=== PATIENT | male | born 1950 | race Caucasian/White ===

== ENCOUNTER 2017-10-17 15:05 | Inpatient (IN) | payer OTHER ==
[~2017-10-17] VITALS: Ht 175.3 cm; Wt 105.2 kg
--- NOTE | 2017-10-17 15:45 | ED GENERAL ADULT ---
History of Present Illness General Chief Complaint: Dyspnea (COPD, CHF, Other) Stated Complaint: ALAINA FOREMAN FOR SOB Source: patient Exam Limitations: no limitations Vital Signs & Intake/Output Vital Signs & Intake/Output Vital Signs Date Time Temp Pulse Resp B/P B/P Pulse O2 O2 Flow FiO2 Mean Ox Delivery Rate 10/17 1829 97.9 71 18 86 Nasal 4.5L Cannula 10/17 1701 95 Nasal 4.0L Cannula 10/17 1629 98.1 75 16 156/96 90 Nasal 4.5L Cannula 10/17 1528 97.5 90 30 164/88 84 Nasal 5.0L Cannula Allergies Coded Allergies: No Known Allergies (10/17/17) Reconcile Medications Amlodipine Besylate 2.5 MG TABLET 1 TAB PO DAILY BP (Reported) Aspirin (Ecotrin*) 81 MG TABLET.DR 1 TAB PO DAILY HEART/BLOOD (Reported) Atorvastatin Calcium 20 MG TABLET 1 TAB PO DAILY CHOLESTEROL (Reported) Budesonide/Formoterol Fumarate (Symbicort 160-4.5 Mcg Inhaler) 160 MCG-4.5 MCG/ ACTUATION HFA.AER.AD 2 PUF INH DAILY RESP. (Reported) Cholecalciferol (Vitamin D3) (Vitamin D) 1,000 UNIT TABLET 1 TAB PO DAILY SUPPLEMENT (Reported) Lorazepam 0.5 MG TABLET 1 TAB PO BID ANXIETY (Reported) Metformin HCl 500 MG TABLET 1 TAB PO DAILY DM (Reported) Oxybutynin Chloride (Oxybutynin Chloride ER) 10 MG TAB.ER.24 1 TAB PO DAILY BLADDER (Reported) Quinapril HCl 20 MG TABLET 1 TAB PO BID BP (Reported) Sertraline HCl 100 MG TABLET 1.5 TAB PO DAILY MENTAL HEALTH (Reported) Triage Note: PT SENT IN BY DR. FOREMAN FOR INCREASED SOB. PT 02 SAT 82% ON 5L VIA NC. PT REPORTS HE HAS BEEN COUGHING AND BRINGING UP YELLOW/WHITE SPUTUM OVER THE PAST COUPLE OF DAYS. PT TAKEN TO EKG ALCOVE AND THEN TO ROOM 2. Triage Nurses Notes Reviewed? yes Onset: Abrupt Duration: day(s): Timing: recent history HPI: 10/17/17 4 PM 67-year-old man presents to the emergency department complaining of difficulty breathing. According to the patient he says shortness of breath for approximately the past week. He is on 4 L nasal cannula at home. Now he presents with worsening difficulty breathing. He says he's been having trouble since he had a intestinal virus that started around Maxim[place]. He denies fever or chest pain. Past History Travel History Traveled to [place] past 21 day No Medical History Any Pertinent Medical History? see below for history Respiratory: COPD, 02 DEPENDANT Surgical History Surgical History: non-contributory Psychosocial History What is your primary language Tajik Tobacco Use: Quit >30 days ago ETOH Use: occasional use Illicit Drug Use: denies illicit drug use Family History Hx Contributory? No Review of Systems Review of Systems Constitutional: Denies: fever. EENTM: Denies: visual changes. Respiratory: Reports: cough, short of breath. Cardiovascular: Denies: chest pain. GI: Denies: abdominal pain. Genitourinary: Reports: no symptoms. Musculoskeletal: Reports: no symptoms. Skin: Reports: no symptoms. Neurological/Psychological: Reports: no symptoms. Hematologic/Endocrine: Reports: no symptoms. Immunologic/Allergic: Reports: no symptoms. Physical Exam Physical Exam General Appearance: alert, awake, anxious, moderate distress Head: atraumatic, normal appearance Eyes: Bilateral: normal appearance, PERRL, EOMI. Ears, Nose, Throat: normal pharynx, normal ENT inspection Neck: normal inspection, supple, full range of motion Respiratory: decreased breath sounds Cardiovascular: regular rate/rhythm Peripheral Pulses: 4+ radial (R), 4+ radial (L) Gastrointestinal: soft, non-tender Back: normal range of motion Extremities: no edema Neurologic/Psych: no motor/sensory deficits, awake, alert, oriented x 3 Skin: intact, normal color, warm/dry Core Measures ACS in differential dx? No CVA/TIA Diagnosis: No Sepsis Present: No Sepsis Focused Exam Completed? No Progress Differential Diagnoses I considered the following diagnoses in my evaluation of the patient: [CHF, pulmonary edema, pneumonia, CHF] Plan of Care: Orders Procedure Date/time Status Heart Healthy Diet 10/18 B Active Patient Data 10/17 1918 Active ED Holding Orders 10/17 1904 Active Admit to inpatient 10/17 1904 Active Vital Signs 10/17 1904 Active Code Status 10/17 190 Active ARTERIAL BLOOD GAS (GEN) 10/17 1608 Active Add-on Test (ER Only) 10/17 1606 Active TROPONIN LEVEL 10/17 1545 Complete PROTHROMBIN TIME 10/17 1545 Complete COMPREHENSIVE METABOLIC PANEL 10/17 1545 Complete CBC WITHOUT DIFFERENTIAL 10/17 1545 Complete B-TYPE NATRIURETIC PEP (BNP) 10/17 1545 Complete D-DIMER 10/17 1530 Complete EKG 10/17 1508 Active Laboratory Tests 10/17/17 1710: pH 7.49 H, pCO2 30 L, pO2 69 L, HCO3 23, ABG O2 Sat (Measured) 92.0 L, P-50 (Temp Corrected) Y, Carboxyhemoglobin 1.5, O2 Concentration % 4L, Temperature 97.5, O2 Delivery Method NC, Phlebotomy Draw Site RIGHT RADIAL 10/17/17 1624: Anion Gap 15, Estimated GFR > 60, BUN/Creatinine Ratio 18.8, Glucose 116 H, Calcium 8.9, Total Bilirubin 0.7, AST 31, ALT 51, Alkaline Phosphatase 116, Troponin I < 0.01, Vjb-G-Blxetwxwbdn Pept 613 H, Total Protein 7.2, Albumin 3.8 , Globulin 3.4, Albumin/Globulin Ratio 1.1 10/17/17 1530: PT 14.0 H, INR 1.34 H, D-Dimer High Sensitivty 226, CBC w Diff NO MAN DIFF REQ , RBC 5.27, MCV 91.6, MCH 30.7, RDW 13.5, MPV 9.8, Gran % 88.7 H, Lymphocytes % 6.1 L, Monocytes % 4.6, Eosinophils % 0.3, Basophils % 0.3, Absolute Granulocytes 10.6 H, Absolute Lymphocytes 0.7 L, Absolute Monocytes 0.6, Absolute Eosinophils 0, Absolute Basophils 0, PUBS MCHC 33.5 Initial ED EKG: NSR Prior EKG: unchanged Departure Departure Disposition: STILL A PATIENT Condition: Stable Clinical Impression Primary Impression: COPD exacerbation Referrals: Wendy Cloud (PCP/Family) Departure Forms: Customer Survey General Discharge Information Admission Note Spoke With: Arley Allen MD Documentation of Exam: Documentation of any treatments & extenuating circumstances including Concerns Regarding Discharge (functional status, medication knowledge or non-compliance, living conditions, etc.) that warrant an admission rather than observation: [The patient needs admission for pulmonary consultation, albuterol every 4 hours, IV steroids, oxygen] Critical Care Note Critical Care Note Critical Care Time: 30-74 min
[2017-10-17 16:00] LABS: ABSOLUTE BASOPHIL COUNT 0 /CUMM (0.0-0.2); ABSOLUTE EOSINOPHIL COUNT 0 /CUMM (0.0-0.7); ABSOLUTE GRANULOCYTE CT 10.6 /CUMM (1.4-6.5); ABSOLUTE LYMPH COUNT 0.7 /CUMM (1.2-3.4); ABSOLUTE MONOCYTE COUNT 0.6 /CUMM (0.10-0.60); BASOPHIL % 0.3 % (0.0-2.0); EOSINOPHIL % 0.3 % (0-5); HEMATOCRIT 48.2 % (42-52); MEAN CORPUSCULAR HGB 30.7 PG (27.0-31.0); MEAN CORPUSCULAR HGB CONC 33.5 G/DL (33.0-37.0); MEAN CORPUSCULAR VOLUME 91.6 FL (80.0-94.0); MEAN PLATELET VOLUME 9.8 FL (7.4-10.4); RBC DISTRIBUTION WIDTH 13.5 % (11.5-14.5); RED BLOOD CELL CT 5.27 /CUMM (4.70-6.10)
[2017-10-17] MEDS ORDERED: VITAMIN D250000 UNIT PO (16:02)
[2017-10-17] MEDS ORDERED: LORAZEPAM0.5 M1 PO (16:03)
[2017-10-17] MEDS ORDERED: METFORMIN HCL500 M3 PO (16:04)
[2017-10-17] MEDS ORDERED: OXYBUTYNIN CHLO10 M1 PO (16:04)
[2017-10-17] MEDS ORDERED: QUINAPRIL HCL20 M1 PO (16:05)
[2017-10-17] MEDS ORDERED: AMLODIPINE BES2.5 M1 PO (16:06)
[2017-10-17] MEDS ORDERED: ATORVASTATIN CA20 M1 PO (16:06)
[2017-10-17] MEDS ORDERED: SERTRALINE HCL100 MG PO (16:06)
[2017-10-17] MEDS ORDERED: SYMBICORT 16010.2 GM INH (16:06)
[2017-10-17] MEDS ORDERED: ASPIRIN EC81 M1 PO (16:07)
--- NOTE | 2017-10-17 16:16 | RADIOLOGY REPORT ---
EXAMINATION: XR PORTABLE CHEST CLINICAL INFORMATION: CHF. Low saturation. COMPARISON: Chest CT 12/24/2016 TECHNIQUE: Portable frontal view of the chest was obtained. FINDINGS: Cardiac leads overlie the chest. Minimal hazy opacities noted at both lung bases. Oligemia of the upper lungs is consistent with known emphysema. No pleural effusion or pneumothorax. The cardiomediastinal silhouette is unchanged. IMPRESSION: Emphysema. Hazy opacity of the lung bases favors atelectasis. No evidence of edema or dense consolidation.
[2017-10-17] MEDS ORDERED: VITAMIN D1000 UNIT PO (16:20)
[2017-10-17 16:27] LABS: GRANULOCYTE % 88.7 % (42.2-75.2)
--- NOTE | 2017-10-17 19:40 | History & Physical ---
Kristyn Plaza MDapna 10/17/171938: General Information and [facility] MD Statement: I have seen and personally examined ELVIS MORRISSEY and documented this H&P. The patient is a 67 year old M who presented with a patient stated chief complaint of [shortness of breath]. Source of Information: patient Exam Limitations: no limitations History of Present Illness: This is a 67-year-old male with past medical history of hypertension, obstructive sleep apnea on CPAP , hyperlipidemia, COPD on 4 L of home oxygen, type 2 diabetes, depression, BPH came to [facility] with the saturation of 75% at Dr. Yeager office today morning. Patient was in apparently normal health until 2 weeks ago, following which he started having shortness of breath on exertion for past 2 weeks associated with cough with white to yellowish thick sputum production for the past 2 days. Patient started using 5 L of oxygen for the past 2 weeks. He also had history of diarrhea with blood, abdominal pain and chills 1 week ago. He denies fever, upper respiratory infection, dysuria, hematuria, abdominal pain, cramps, orthopnea, PND, chest pain, chest pressure. Patient has a history of hemorrhoids diagnosis many years ago, since then has bleeding per rectum on and off. Patient has been seeing Dr. Patel in view of his extensive family history of heart disease. No stents/surgeries done. His echo done and stress test 4 years ago was normal. Last visit was a year ago. Patient has been checking his blood pressure regularly which she says is within the normal limits. He shouldn't measured his blood sugar today at home which was found to be 88 mg/dL. Past surgical history-pilonidal abscess drained. Patient had a colonoscopy done 16 years ago which was found to be normal. Patient also has a history of hemorrhoids in the past. Since then patient has blood in stool on and off. Allergies/Medications Allergies: Coded Allergies: No Known Allergies (10/17/17) Home Med list Amlodipine Besylate 2.5 MG TABLET 1 TAB PO DAILY BP (Reported) Aspirin (Ecotrin*) 81 MG TABLET. 1 TAB PO DAILY HEART/BLOOD (Reported) Atorvastatin Calcium 20 MG TABLET 1 TAB PO DAILY CHOLESTEROL (Reported) Budesonide/Formoterol Fumarate (Symbicort 160-4.5 Mcg Inhaler) 160 MCG-4.5 MCG/ ACTUATION HFA.AER.AD 2 PUF INH BID COPD (Reported) Cholecalciferol (Vitamin D3) (Vitamin D) 1,000 UNIT TABLET 1 TAB PO DAILY SUPPLEMENT (Reported) Lorazepam 0.5 MG TABLET 1 TAB PO BID ANXIETY (Reported) Metformin HCl (Metformin HCl ER) 500 MG TAB.ER.24 1 TAB PO DAILY DM (Reported ) Oxybutynin Chloride (Oxybutynin Chloride ER) 10 MG TAB.ER.24 1 TAB PO DAILY BLADDER (Reported) Quinapril HCl 20 MG TABLET 1 TAB PO BID BP (Reported) Sertraline HCl 100 MG TABLET 1.5 TAB PO DAILY MENTAL HEALTH (Reported) Compliance With Home Meds: GOOD Past History Travel History Traveled to [place] past 21 day No Medical History Neurological: NONE EENT: NONE Cardiovascular: hypertension, hyperlipidemia Respiratory: COPD, 02 DEPENDANT Gastrointestinal: NONE Hepatic: NONE Musculoskeletal: NONE Influenza Vaccine Status Given in past- Date Above Surgical History Surgical History: none Past Family/Social History Family History Relations & Conditions if any FATHER MOTHER Relation not specified for: FH: heart disease FHx: heart disease Psychosocial History Where do you live? Home Who Do You Live With? spouse Services at Home: Oxygen Primary Language: Cymro Smoking Status: Former Smoker ETOH Use: occasional use Illicit Drug Use: denies illicit drug use Functional Ability ADLs Independent: dressing, eating, toileting, bathing. Ambulation: independent IADLs Independent: shopping, housework, finances, food prep, telephone, transportation , medication admin. Review of Systems Review of Systems Constitutional: Reports: no symptoms. EENTM: Reports: no symptoms. Cardiovascular: Reports: no symptoms. Respiratory: Reports: cough, short of breath, sputum production. GI: Reports: no symptoms. Genitourinary: Reports: no symptoms. Musculoskeletal: Reports: no symptoms. Skin: Reports: no symptoms. Neurological/Psychological: Reports: no symptoms. Exam & Diagnostic Data Last 24 Hrs of Vital Signs/I&O Vital Signs Date Time Temp Pulse Resp B/P B/P Pulse O2 O2 Flow FiO2 Mean Ox Delivery Rate 10/18 0014 65 96 10/17 2234 78 93 10/17 2226 Nasal 6.0L Cannula 10/17 2202 98.5 85 22 140/88 88 Nasal 6.0L Cannula 10/17 2120 98.0 77 22 152/87 89 Nasal 5.0L Cannula 10/17 2015 89 Nasal 6.0L Cannula 10/17 1829 97.9 71 18 86 Nasal 4.5L Cannula 10/17 1701 95 Nasal 4.0L Cannula 10/17 1629 98.1 75 16 156/96 90 Nasal 4.5L Cannula 10/17 1528 97.5 90 30 164/88 84 Nasal 5.0L Cannula Intake & Output 10/18 0800 10/18 0000 10/17 1600 Intake Total Output Total 100 Balance -100 Output, Urine 100 Patient 232 lb 260 lb Weight Weight Reported by Patient Estimated Measurement Method Physical Exam General Appearance Alert, Oriented X3, Cooperative, Mild Distress Skin No Rashes, No Breakdown HEENT Atraumatic, PERRLA Cardiovascular Regular Rate, Normal S1, Normal S2 Lungs b/l wheeze Abdomen Normal Bowel Sounds, Soft, No Tenderness Neurological Normal Speech, Strength at 5/5 X4 Ext, Normal Tone, Sensation Intact Extremities No Cyanosis, No Edema Last 24 Hrs of Labs/Lloyd: Laboratory Tests 10/17/17 1710: pH 7.49 H, pCO2 30 L, pO2 69 L, HCO3 23, ABG O2 Sat (Measured) 92.0 L, P-50 (Temp Corrected) Y, Carboxyhemoglobin 1.5, O2 Concentration % 4L, Temperature 97.5, O2 Delivery Method NC, Phlebotomy Draw Site RIGHT RADIAL 10/17/17 1624: Anion Gap 15, Estimated GFR > 60, BUN/Creatinine Ratio 18.8, Glucose 116 H, Calcium 8.9, Total Bilirubin 0.7, AST 31, ALT 51, Alkaline Phosphatase 116, Troponin I < 0.01, Xff-R-Srejlcrlvzp Pept 613 H, Total Protein 7.2, Albumin 3.8 , Globulin 3.4, Albumin/Globulin Ratio 1.1 10/17/17 1530: PT 14.0 H, INR 1.34 H, D-Dimer High Sensitivty 226, CBC w Diff NO MAN DIFF REQ , RBC 5.27, MCV 91.6, MCH 30.7, RDW 13.5, MPV 9.8, Gran % 88.7 H, Lymphocytes % 6.1 L, Monocytes % 4.6, Eosinophils % 0.3, Basophils % 0.3, Absolute Granulocytes 10.6 H, Absolute Lymphocytes 0.7 L, Absolute Monocytes 0.6, Absolute Eosinophils 0, Absolute Basophils 0, PUBS MCHC 33.5 Diagnostic Data CXR Results iMPRESSION: Emphysema. Hazy opacity of the lung bases favors atelectasis. No evidence of edema or dense consolidation. Assessment/Plan Assessment: This is a 67-year-old male with past medical history of hypertension, obstructive sleep apnea on CPAP , hyperlipidemia, COPD on 4 L of home oxygen, type 2 diabetes, depression, BPH came to [place] [facility] with the saturation of 75% at Dr. Yeager office today morning patient had shortness of breath with cough and sputum production for the past 2 weeks. Patient admitted to general medical floor in view of his exacerbation of COPD. Problem list 1. Acute exacerbation of COPD 2. Hypertension 3. Hyperlipidemia 4. Obstructive sleep apnea 5. Diabetes mellitus 6. Depression 7. BPH. Assessment and plan 1. Acute exacerbation of COPD We'll start him on IV methylprednisone 40 mg every 8 and switch him to oral prednisone once his condition improves. We will put him on azithromycin, ipratropium, continue albuterol. TRC nebulization. Continue nasal oxygen at 5 L and CPAP at night. Dr. Yeager consult in a.m. monitor vitals and follow-up BP, CBCs in a.m. Sent sputum culture. 2.Hypertension/hyperlipidemia/obstructive sleep apnea/diabetes/depression/BPH. We will continue his amlodipine, lisinopril, oxybutynin, sertraline. We will start him on sliding scale NovoLog insulin and monitor his blood sugar. 3. Patient's history of lower GI bleed can be possibly due to his past history of hemorrhoids. We will guaiac all his stools. We will monitor his H&H. GI consult if needed. Code-full code Diet-regular diet As Ranked By This Provider Problem List: 1. COPD exacerbation Core Measures/Misc (07/07) Acute Coronary Syndrome ACS Diagnosis: No Congestive Heart Failure Congestive Heart Failure Diagnosis No Cerebrovascular Accident CVA/TIA Diagnosis: No VTE (View Protocol) VTE Risk Factors Age>40 No Mechanical VTE Prophylaxis d/t Other No VTE Pharm Prophylaxis d/t Other Sepsis (View protocol) Sepsis Present: No Nilda Washington 10/18/17 0251: Resident Review Statement Resident Statement: examined this patient, discussed with international project manager, agreed with international project manager, reviewed EMR data (avail), reviewed images, amended to note Other Findings: Mr Morrissey is a 67 year old man w/ a PMHx of COPD (on 4-5 supplemental oxygen), recent admission to [facility] for treatment of AECOPD (10/2016), hypertension, hyperlipidemia, type 2 diabetes was sent by his textile machine operator for evaluation of worsening dyspnea and hypoxemia. He has been feeling increasingly dyspneic in the last few months, which progressed from dyspnea on exertion to dyspnea upon aberration. He also noted occasional yellow sputum production, not associated with any cough. He had flulike symptoms approximately 10 days ago, after which his symptoms worsen prompting him to seek medical attention. He was persistently hypoxemic, oxygen saturations-late 80s, even while on supplemental oxygen. He also reported loose stools, but no diarrhea. No fever, chest pain, palpitations. No recent prednisone use. He has been worked up by his representative government relations for coronary artery disease, which apparently were within normal limits. Smoking-approximately [id number] history, quit 10 years ago. At the time of admission, vitals remained stable, temp 97.5, pulse rate 90, respiration 30, blood pressure 164/88, Except oxygen saturations ranged in between 84-90 even while on 4-5 L of supplemental oxygen. On examination, he was alert and oriented to time place and person. He was mildly dyspneic, while he was conversing, but did not have any orthopnea. No use of any accessory muscles. He appeared euvolemic. Cardiovascular examination-was within normal limits. Respiratory examination-decreased air entry bilaterally, mild wheezes at the base of the lungs. Benign abdominal exam, and 1+ pedal edema. Pertinent lab findings: WBC 12.0, hemoglobin 16.1, platelets could not be measured due to clumping ( but as per lab report platelets were adequate). Renal function-BUN 15, serum creatinine 0.8. ProBNP 613. Bicarbonate 26. Arterial blood gas analysis-pH 7.49, PCO2 30, PaO2 69, oxygen saturation 92%. Chest x-ray revealed emphysematous changes, with no consolidation. EKG revealed normal sinus rhythm, normal axis, no ST-T wave changes. PFT 02/23/2016-performed by Dr. Yeager revealed severe obstructive lung disease with partially reversible competent, a trapping, hyperinflation and resting hypoxemia. The FVC is reduced. The FEV1, KTC51-56 and FEV1/FVC ratio are reduced. There is significant improvement in CCR44-93 following bronchodilators. Diffusing capacity uncorrected for hemoglobin is reduced. Room air oximetry is reduced. There is desaturation with ambulation and 4 liters nasal oxygen.Compared to 2009 there has been a marked decrement in lung function. Etiology of this presentation, acute exacerbation of COPD is likely from possible viral infection that may have started a week ago. He is a competent of emphysema, which is usually progressive. Other possible etiologies, could be acute bronchitis is in differential. Plan: #1 acute exacerbation of COPD- he has an acute hypoxic respiratory failure, with oxygen saturations dropping to less than 85% even while on oxygen. He needs to be treated with supplemental oxygen, intravenous steroids, and azithromycin. Taper steroids, as per clinical improvement. For now, continue Symbicort, albuterol. At the time of discharge, the patient would likely need a longer taper of steroids. Please let Dr. Barlow know in the a.m. Continue CPAP, as per his home settings. #2 hypertension, diabetes-would continue on antihypertensives, and insulin sliding scale at this time. Housekeeping: #1 DVT prophylaxis-subcutaneous heparin #2 full code #3 plan discussed with the attending. Medication reconciliation #1. Amlodipine-continue #2 aspirin-continued #3 atorvastatin-continue #4 Symbicort-continued #5 lorazepam-continue #6 metformin-held #7 Quinalapril-changed to lisinopril #8 sertraline-continued. #9 vitamin D-continued Alejandro BORGES, [facility] 10/18/17 0344: Attending MD Review Statement Attending Statement Attending MD Statement: examined this patient, discuss w/resident/PA/ELECTRONICS ENGINEERING MANAGER, agreed w/resident/PA/ELECTRONICS ENGINEERING MANAGER, reviewed images, amended to note Attending Assessment/Plan: 67 yo M with h/o severe COPD on 4.5 L home O2, T2DM, HTN, anxiety, last admitted to [facility] for bronchopneumonia (Oct 2016), XAVIER on nocturnal CPAP , is sent in from Dr. Bowen's office for worsening exertional dyspnea and hypoxia. At baseline, patient has chronic exertional dyspnea and he follows with Dr. Bowen for his COPD. Over past two months, he has noted worsening exertional dyspnea. 1 week prior to [place], he was sick with a stomach bug causing him semi-formed stools associated with flu like symptoms with lightheadedness. Over the past two days, his dyspnea has progressed with minimal exertion and he has yellow-dark phlegm production although he does not report a cough. Chills+, no fever. He received Flu vaccine. He has never been intubated for COPD. He reports his O2 sats have been in 88-90's on 4.5L at home. He had to increase his O2 to 5L. He decided to visit Dr. Bowen for a follow up, and he was noted to have O2 sats in 80's, hence sent to ER. Vitals: afebrile, HR 70-90's, BP 140/88, sats 86% on 4L --> 89% on 6L --> CPAP. Exam: AAO, in mild respiratory distress, tachypneic on leaning forward, able to speak in full sentences. Neck supple, MMM. Chest b/l reduced air entry with scattered wheeze+. Heart S1S2 regular, ?systolic murmur, Abd soft, NT, LE: trace edema+. Labs: WBC 12, Platelet clumps, unable to calculate, INR 1.34, D-dimer 226, Na 146, glucose 116, trop neg. AB.49/30/69/23. CXR: emphysema, hazy opacity of lung bases favors atelectasis, no evidence of edema or consolidation. PFT (2016) : severe obstructive lung disease with a partially reversible component, airtrapping, hyperinflation and resting hypoxemia. EKG: Sinus rhythm, TWI in V2- 6 (no old EKG to compare), Qtc 457. Assessment and plan: 1. Acute on chronic hypoxemic respiratory failure 2. Acute exacerbation of COPD 3. XAVIER on CPAP 4. Respiratory alkalosis with metabolic alkalosis 5. History of hypertension - Admit to general medicine - TRC nebs - Sputum culture, check flu swab - IV solumedrol 40 Q8 - IV azithromycin daily for 5 days - Pulm consult (Dr. Bowen) - Nocturnal CPAP discussed with RT - Keep O2 sats >90-92% - Gentle hydration - Recheck CBC in AM and assess platelet counts - Diabetes management with insulin - Repeat EKG and troponin in AM - Monitor diarrhea patient reports he had two semi-formed BM's yesterday. DVT ppx Lovenox. Full code.
[2017-10-17] MEDS ORDERED: METFORMIN HCL500 M2 PO (20:56)
--- NOTE | 2017-10-17 21:10 | Admission Certification ---
Admission Certification Certification Statement - As attending physician, I certify that at the time of - admission, based on clinical presentation, severity of - symptoms, need for further diagnostic testing and - therapeutic interventions, and risk of adverse outcomes - without in-hospital treatment, in my clinical assessment, - this patient requires an acute hospital stay for a minimum - of two nights or longer. I have also considered psychsocial - factors such as support system, advanced age, financial - issues, cognitive issues, and failed out-patient treatments, - past re-admission history, safety of patient, and lack of - compliance as applicable. Specific rationale supporting this admission is: Acute on chronic hypoxemic respiratory failure, COPD exacerbation.
[2017-10-17 22:02] VITALS: BP 140/88
--- NOTE | 2017-10-18 07:05 | PN- Housestaff ---
Yaneli BORGES,Senthil 10/18/17 0704: Subjective Follow-up For: COPD exacerbation Subjective: Patient was seen and examined at bedside. He was resting comfortably. He had no acute events overnight. Overall he reports feeling better. He continues to complain of a cough which was productive as an outpatient, is now nonproductive. He is on increased O2 supplementation from baseline and currently reports no shortness of breath. He also denies any chest pain, nausea, vomiting, fever, chills, leg swelling. Review of Systems Constitutional: Denies: chills, fever. Cardiovascular: Denies: chest pain, palpitations. Respiratory: Reports: cough. Denies: short of breath, sputum production. Gastrointestinal: Reports: no symptoms. Genitourinary: Reports: no symptoms. Musculoskeletal: Reports: no symptoms. Objective Last 24 Hrs of Vital Signs/I&O Vital Signs Date Time Temp Pulse Resp B/P B/P Pulse O2 O2 Flow FiO2 Mean Ox Delivery Rate 10/18 0514 65 91 10/18 0014 65 96 10/18 0000 95 CPAP 6.0L 10/17 2234 78 93 10/17 2226 Nasal 6.0L Cannula 10/17 2202 98.5 85 22 140/88 88 Nasal 6.0L Cannula 10/17 2120 98.0 77 22 152/87 89 Nasal 5.0L Cannula 10/17 2015 89 Nasal 6.0L Cannula 10/17 1829 97.9 71 18 86 Nasal 4.5L Cannula 10/17 1701 95 Nasal 4.0L Cannula 10/17 1629 98.1 75 16 156/96 90 Nasal 4.5L Cannula 10/17 1528 97.5 90 30 164/88 84 Nasal 5.0L Cannula Intake & Output 10/18 0800 10/18 0000 10/17 1600 Intake Total 250 Output Total 100 Balance 150 Intake, IV 250 Intake, Oral 0 Output, Urine 100 Patient 232 lb 260 lb Weight Weight Reported by Patient Estimated Measurement Method Physical Exam General Appearance: Alert, Oriented X3, Cooperative, No Acute Distress Skin Temp/Moisture Exam: Warm/Dry Cardiovascular: Regular Rate, Normal S1, Normal S2, No Murmurs Lungs: diminished breath sounds diffusely, no wheezing, no respiratory distress, no use of accessory muscles, able to speak in full sentences Abdomen: Normal Bowel Sounds, Soft, No Tenderness Neurological: Normal Speech, Sensation Intact Current Medications: Current Medications Sig/Delia Start time Last Medication Dose Route Stop Time Status Admin Albuterol Sulfate 3 ML BID 10/18 1000 AC INH Albuterol Sulfate 3 ML ONCE ONE 10/17 1615 DC 10/17 INH 10/17 1616 1701 Amlodipine Besylate 2.5 MG DAILY 10/18 1000 AC PO Aspirin Buffered 81 MG DAILY 10/18 1000 AC PO Atorvastatin Calcium 20 MG 1700 10/18 1700 AC PO Azithromycin 500 MG 2100 10/18 2100 AC Sodium Chloride 250 ML IV Azithromycin 500 MG ONCE ONE 10/17 2115 DC 10/18 Sodium Chloride 250 ML IV 10/17 2214 0009 Budesonide/ 2 PUF BID 10/17 2200 AC 10/18 Formoterol Fumarate INH 0010 Ceftriaxone Sodium 0 .STK-MED ONE 10/17 171 DC .ROUTE Ceftriaxone Sodium 1,000 MG ONCE ONE 10/17 1615 DC 10/17 IV 10/17 1616 1717 Cholecalciferol 1,000 IU DAILY 10/18 1000 AC PO Heparin Sodium 5,000 UNIT Q8 10/17 2200 AC 10/18 (Porcine) SC 0644 Insulin Aspart 0 TIDAC 10/18 0800 AC SC Ipratropium [place] 2.5 ML ONCE ONE 10/17 1615 DC 10/17 INH 10/17 1616 1700 Lisinopril 20 MG DAILY 10/18 1000 AC PO Lorazepam 0.5 MG BID 10/17 2200 AC 10/18 PO / 2159 0011 Methylprednisolone 40 MG Q8 10/18 0600 AC 10/18 IV 0647 Methylprednisolone 0 .STK-MED ONE 10/17 171 DC .ROUTE Methylprednisolone 125 MG ONCE ONE 10/17 1615 DC 10/17 IV 10/17 1616 1717 Oxybutynin Chloride 5 MG BID 10/18 1000 AC PO Sertraline HCl 150 MG DAILY 10/18 1000 AC PO Sodium Chloride 1,000 ML Q20H 10/18 0500 AC 10/18 IV 0644 Last 24 Hrs of Lab/Lloyd Results Last 24 Hrs of Labs/Mics: Laboratory Tests 10/18/17 0738: CBC w Diff NO MAN DIFF REQ, RBC 4.47 L, MCV 90.8, MCH 30.7, RDW 13.1, Gran % 83.9 H, Lymphocytes % 9.9 L, Monocytes % 6.0, Eosinophils % 0, Basophils % 0.2 , Absolute Granulocytes 6.5, Absolute Lymphocytes 0.8 L, Absolute Monocytes 0.5 , Absolute Eosinophils 0, Absolute Basophils 0, PUBS MCHC 33.8 10/18/17 0620: Anion Gap 13, Estimated GFR > 60, BUN/Creatinine Ratio 20.0, Troponin I < 0.01 10/18/17 0600: Sodium Cancelled, Potassium Cancelled, Chloride Cancelled, Carbon Dioxide Cancelled, Anion Gap Cancelled, BUN Cancelled, Creatinine Cancelled, BUN/ Creatinine Ratio Cancelled Microbiology 10/18 0850 NASOPHARYN: Influenza Virus A & B Rapid Smear - COMP 10/18 06 LOWER RESP: Respiratory Culture - COLB 10/18 600 LOWER RESP: Gram Stain - COLB Assessment/Plan Assessment: Patient is a 59-year-old male with a PMH significant for HTN, 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 Yeager's office after he was found to have an O2 saturation of 75%. #Acute on chronic hypoxic respiratory failure Patient has significantly increased oxygen demand, currently on 7 L O2 nasal cannula. Baseline is 4.5 L. ABG showed hypoxemia without hypercapnia. While this is likely a COPD exacerbation he is not wheezing currently. -D-dimer was negative, patient has no clinical signs of DVT however will proceed with CTA to rule out PE -Continue IV Solu-Medrol -Continue IV azithromycin -TRC/nebs -Continue nocturnal CPAP #Chronic medical problems including HTN, HLD, DM, aortic stenosis seen on previous CT -Continue with home medications including amlodipine, lisinopril, oxybutynin, sertraline -Continue with insulin sliding scale -Will obtain echocardiogram to assess #DVT prophylaxis Subcutaneous heparin, Alps #CODE STATUS Full code Problem List: 1. COPD exacerbation Pain Ratin Pain Location: none Pain Goal: Remain pain free Pain Plan: pain pathway Tomorrow's Labs & Rationales: david Hicks MD,Rehana 10/18/17 1430: Attending Review Statement Attending Statement Attending MD Statement: examined this patient, discuss w/resident/PA/SITE SAFETY MANAGER, agreed w/resident/PA/SITE SAFETY MANAGER, reviewed EMR data (avail), discussed with nursing, discussed with case mgmt, amended to note Attending Assessment/Plan: Patient seen and examined. Resting comfortably not in acute distress. Reports feeling better. On examination he has poor entry bilaterally but no added sounds. Denies productive cough. Denies chest pain or palpitations. However is requiring 7 L of oxygen to maintain saturation just above 90%. 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 On examination he has no jugular venous distention. He has no peripheral edema. He does not appear volume overloaded. Chest x-ray shows no evidence of volume congestion. Chest x-ray shows no evidence of acute pulmonary process. D-dimer is low making pulmonary embolism less likely however there is no clear explanation of his significant hypoxemia particularly in light of evidence of bronchospasm at present. Recommendations: -Obtain CT angiogram to rule out pulmonary embolism for the lung parenchyma. -Continue bronchodilator therapy and systemic steroid therapy. - continue CPAP therapy at night -Continue oxygen supplementation to saturation greater than 90%. - obtain echocardiogram to further evaluate aortic sclerosis noted on chest CT done as an outpatient
[2017-10-18 07:33] VITALS: BP 138/76
--- NOTE | 2017-10-18 08:25 | Cons- Pulmonary ---
General Information and HPI Consulting Request Date of Consult: 10/18/17 Requested By: Toyin Reason for Consult: Acute on chronic hypoxic history failure COPD exacerbation History of Present Illness: Patient is a 67-year-old gentleman with sleep apnea severe oxygen-dependent COPD chronic hypoxic history failure admitted with increasing shortness of breath and desaturation in the office yesterday. He's had shortness of breath over the past week or so without significant chest pain fevers chills or purulent sputum. In the office his oxygen saturation was 79-80% on 5 L intermittent oxygen. This morning patient feels significantly improved with diminished shortness of breath Allergies/Medications Allergies: Coded Allergies: No Known Allergies (10/17/17) Home Med List: Amlodipine Besylate 2.5 MG TABLET 1 TAB PO DAILY BP (Reported) Aspirin (Ecotrin*) 81 MG TABLET.DR 1 TAB PO DAILY HEART/BLOOD (Reported) Atorvastatin Calcium 20 MG TABLET 1 TAB PO DAILY CHOLESTEROL (Reported) Budesonide/Formoterol Fumarate (Symbicort 160-4.5 Mcg Inhaler) 160 MCG-4.5 MCG/ ACTUATION HFA.AER.AD 2 PUF INH BID COPD (Reported) Cholecalciferol (Vitamin D3) (Vitamin D) 1,000 UNIT TABLET 1 TAB PO DAILY SUPPLEMENT (Reported) Lorazepam 0.5 MG TABLET 1 TAB PO BID ANXIETY (Reported) Metformin HCl (Metformin HCl ER) 500 MG TAB.ER.24 1 TAB PO DAILY DM (Reported ) Oxybutynin Chloride (Oxybutynin Chloride ER) 10 MG TAB.ER.24 1 TAB PO DAILY BLADDER (Reported) Quinapril HCl 20 MG TABLET 1 TAB PO BID BP (Reported) Sertraline HCl 100 MG TABLET 1.5 TAB PO DAILY MENTAL HEALTH (Reported) Review of Systems Review of Systems Constitutional: Denies: chills, fever. Cardiovascular: Denies: chest pain, edema. Respiratory: Reports: short of breath. Denies: cough, hemoptysis, sputum production. GI: Denies: abdominal pain, diarrhea, melena. Past History Travel History Traveled to [place] past 21 day No Medical History Blood Transfusion Hx: No Neurological: NONE EENT: NONE Cardiovascular: hypertension, hyperlipidemia Respiratory: COPD, 02 DEPENDANT Gastrointestinal: NONE Hepatic: NONE Renal: urinary incontinence Musculoskeletal: NONE Psychiatric: anxiety, depression Endocrine: diabetes Blood Disorders: NONE Cancer(s): NONE LABORER CONSTRUCTION OR LEAK GANG/Reproductive: NONE Surgical History Surgical History: 1 Family History Relations & Conditions If Any: FATHER MOTHER Relation not specified for: FH: heart disease FHx: heart disease Psychosocial History Where Do You Live? Home Who Do You Live With? spouse Services at Home: Oxygen Primary Language: Irish Smoking Status: Former Smoker ETOH Use: occasional use Illicit Drug Use: denies illicit drug use Functional Ability ADLs Independent: dressing, eating, toileting, bathing. Ambulation: independent IADLs Independent: shopping, housework, finances, food prep, telephone, transportation , medication admin. Exam & Diagnostic Data Last 24 Hrs of Vital Signs/I&O Vital Signs Date Time Temp Pulse Resp B/P B/P Pulse O2 O2 Flow FiO2 Mean Ox Delivery Rate 10/18 0733 98.2 71 18 138/76 95 10/18 0514 65 91 10/18 0014 65 96 10/18 0000 95 CPAP 6.0L 10/17 2234 78 93 10/17 2226 Nasal 6.0L Cannula 10/17 2202 98.5 85 22 140/88 88 Nasal 6.0L Cannula 10/17 2120 98.0 77 22 152/87 89 Nasal 5.0L Cannula 10/17 2015 89 Nasal 6.0L Cannula 10/17 1829 97.9 71 18 86 Nasal 4.5L Cannula 10/17 1701 95 Nasal 4.0L Cannula 10/17 1629 98.1 75 16 156/96 90 Nasal 4.5L Cannula 10/17 1528 97.5 90 30 164/88 84 Nasal 5.0L Cannula Intake & Output 10/18 1600 10/18 0800 10/18 0000 Intake Total 250 Output Total 350 100 Balance -350 150 Intake, IV 250 Intake, Oral 0 Output, Urine 350 100 Patient 232 lb Weight Weight Reported by Patient Measurement Method Oxygen saturation 6 L 95% HNT exam shows no adenopathy exam of his chest shows diminished breath sounds there are no wheezes heard cardiac exam is regular S1 and S2 abdomen is soft nontender there's no edema Last 48 Hrs of Labs/Lloyd: Laboratory Tests 10/18/17 0738: CBC w Diff Pending, WBC Pending, RBC Pending, Hgb Pending, Hct Pending, MCV Pending, MCH Pending, RDW Pending, Plt Count Pending, MPV Pending, PUBS MCHC Pending 10/18/17 0620: Sodium Pending, Potassium Pending, Chloride Pending, Carbon Dioxide Pending, Anion Gap Pending, BUN Pending, Creatinine Pending, BUN/Creatinine Ratio Pending , Troponin I Pending 10/18/17 0600: Sodium Cancelled, Potassium Cancelled, Chloride Cancelled, Carbon Dioxide Cancelled, Anion Gap Cancelled, BUN Cancelled, Creatinine Cancelled, BUN/ Creatinine Ratio Cancelled 10/17/17 1710: pH 7.49 H, pCO2 30 L, pO2 69 L, HCO3 23, ABG O2 Sat (Measured) 92.0 L, P-50 (Temp Corrected) Y, Carboxyhemoglobin 1.5, O2 Concentration % 4L, Temperature 97.5, O2 Delivery Method NC, Phlebotomy Draw Site RIGHT RADIAL 10/17/17 1624: Anion Gap 15, Estimated GFR > 60, BUN/Creatinine Ratio 18.8, Glucose 116 H, Calcium 8.9, Total Bilirubin 0.7, AST 31, ALT 51, Alkaline Phosphatase 116, Troponin I < 0.01, Xwh-S-Nivmlarnlhk Pept 613 H, Total Protein 7.2, Albumin 3.8 , Globulin 3.4, Albumin/Globulin Ratio 1.1 10/17/17 1530: PT 14.0 H, INR 1.34 H, D-Dimer High Sensitivty 226, CBC w Diff NO MAN DIFF REQ , RBC 5.27, MCV 91.6, MCH 30.7, RDW 13.5, MPV 9.8, Gran % 88.7 H, Lymphocytes % 6.1 L, Monocytes % 4.6, Eosinophils % 0.3, Basophils % 0.3, Absolute Granulocytes 10.6 H, Absolute Lymphocytes 0.7 L, Absolute Monocytes 0.6, Absolute Eosinophils 0, Absolute Basophils 0, PUBS MCHC 33.5 Assessment/Plan Impression/Plan: 67-year-old with severe COPD chronic hypoxic history failure admitted with increased shortness breath secondary to exacerbation of COPD and acute on chronic acute hypoxic respiratory failure. Patient's prior CT scan shows significant aortic sclerosis. Recommendations: Continue Zithromax IV steroids and taper FiO2 his saturations allow. Continue nocturnal BiPAP for sleep apnea. Obtain cardiac ultrasound for exclusion of significant aortic stenosis. Change sputum C&S Consult Acknowledgment - Thank you for your consult request.
[2017-10-18 09:27] LABS: ABSOLUTE BASOPHIL COUNT 0 /CUMM (0.0-0.2); ABSOLUTE EOSINOPHIL COUNT 0 /CUMM (0.0-0.7); ABSOLUTE GRANULOCYTE CT 6.5 /CUMM (1.4-6.5); ABSOLUTE LYMPH COUNT 0.8 /CUMM (1.2-3.4); ABSOLUTE MONOCYTE COUNT 0.5 /CUMM (0.10-0.60); BASOPHIL % 0.2 % (0.0-2.0); EOSINOPHIL % 0 % (0-5); MEAN CORPUSCULAR HGB 30.7 PG (27.0-31.0); MEAN CORPUSCULAR HGB CONC 33.8 G/DL (33.0-37.0); MEAN CORPUSCULAR VOLUME 90.8 FL (80.0-94.0); RBC DISTRIBUTION WIDTH 13.1 % (11.5-14.5); RED BLOOD CELL CT 4.47 /CUMM (4.70-6.10)
[2017-10-18 09:36] LABS: HEMATOCRIT 40.6 % (42-52)
[2017-10-18 10:11] LABS: GRANULOCYTE % 83.9 % (42.2-75.2); WHITE BLOOD CELL COUNT 7.8 /CUMM (4.8-10.8)
[2017-10-18 14:22] VITALS: BP 118/70
--- NOTE | 2017-10-18 15:08 | ECHOCARDIOGRAM REPORT ---
ELVIS MORRISSEY Age: 67 : 1950 Gender: M Exam Date: 10/18/2017 12:07 Exam Location: [address] [place] [address] Ht (in): 69 Wt (lb): 231 BSA: 2.30 BP: 154 / 68 Ordering Physician: KEDAR KRISHNAN MD Referring Physician: KEDAR KRISHNAN MD Technologist: Fidel Terrazas RDCS Room Number: 209-2 Indications: MURMUR/CLICK Rhythm: Technical Quality: Technically difficult study FINDINGS Left Ventricle Left ventricle not well visualized, grossly normal. Left ventricular ejection fraction is estimated at > 55 %. No obvious regional wall motion abnormalities. Right Ventricle Right ventricle not well visualized, grossly normal. Right Atrium Right atrium not well visualized, grossly normal. Left Atrium Left atrium not well visualized, grossly normal. Mitral Valve Mitral valve not well visualized, grossly normal. Trace mitral regurgitation. Aortic Valve Aortic valve not well visualized. Likely mild aortic stenosis. Tricuspid Valve Tricuspid valve not well visualized, grossly normal. Trace tricuspid regurgitation. Likely moderate pulmonary hypertension. Pulmonic Valve Pulmonic valve not well visualized. Pericardium No pericardial effusion. Great Vessels Normal size aortic root. CONCLUSIONS Technically difficult study. Left ventricle not well visualized, grossly normal. Left ventricular ejection fraction is estimated at > 55 %. No obvious regional wall motion abnormalities. Right ventricle not well visualized, grossly normal. Aortic valve not well visualized. Likely mild aortic stenosis. Likely moderate pulmonary hypertension. No pericardial effusion. Brayden Davis M.D. (Electronically Signed) Final Date: 18 October 2017 15:08 MEASUREMENTS (Male / Female) Normal Values 2D ECHO LV Diastolic Diameter PLAX 4.5 cm 4.2 - 5.9 / 3.9 - 5.3 cm LV Systolic Diameter PLAX 2.6 cm 2.1 - 4.0 cm LV Fractional Shortening PLAX 42.2 % 25 - 46 % LV Ejection Fraction 2D Teich 73.4 % IVS Diastolic Thickness 1.0 cm LVPW Diastolic Thickness 1.0 cm LV Relative Wall Thickness 0.4 LVOT Diameter 2.0 cm Aortic Root Diameter 3.2 cm LA Systolic Diameter LX 3.2 cm 3.0 - 4.0 / 2.7 - 3.8 cm DOPPLER AV Peak Velocity 270.0 cm/s AV Peak Gradient 29.2 mmHg AV Mean Velocity 167.0 cm/s AV Mean Gradient 14.0 mmHg AV Velocity Time Integral 49.6 cm LVOT Peak Velocity 104.0 cm/s LVOT Peak Gradient 4.3 mmHg LVOT Mean Velocity 64.8 cm/s LVOT Mean Gradient 2.0 mmHg LVOT Velocity Time Integral 25.5 cm LVOT Stroke Volume 80.1 cm AV Area Cont Eq vti 1.6 cm AV Area Cont Eq pk 1.2 cm MV Peak Velocity 96.5 cm/s MV Peak Gradient 3.7 mmHg MV Mean Velocity 57.0 cm/s MV Mean Gradient 1.0 mmHg Mitral E Point Velocity 68.6 cm/s Mitral A Point Velocity 90.8 cm/s Mitral E to A Ratio 0.8 MV PHT Velocity 82.8 cm/s MV Deceleration [place] 230.0 cm/s MV Pressure Half Time 108.0 ms MV Area PHT 2.0 cm MV Deceleration Time 377.0 ms TV Peak E Velocity 70.6 cm/s TR Peak Velocity 376.0 cm/s TR Peak Gradient 56.6 mmHg Right Atrial Pressure 5.0 mmHg Pulmonary Artery Systolic Pressu 61.6 mmHg Right Ventricular Systolic Press 61.6 mmHg PV Peak Velocity 132.5 cm/s PV Peak Gradient 7.0 mmHg PV Mean Velocity 82.3 cm/s PV Mean Gradient 3.5 mmHg PV Velocity Time Integral 24.2 cm LV E' Lateral Velocity 11.7 cm/s Mitral E to LV E' Lateral Ratio 5.9 LV E' Septal Velocity 6.1 cm/s Mitral E to LV E' Septal Ratio 11.2
--- NOTE | 2017-10-18 16:01 | CT SCAN REPORT ---
EXAMINATION: CT ANGIOGRAM OF THE CHEST WITH AND WITHOUT CONTRAST (CT PULMONARY ANGIOGRAM FOR PE) CLINICAL INFORMATION: Hypoxemia COMPARISON: Chest x-ray from 10/17/2017. Chest CT from 12/24/2016 TECHNIQUE: Prior to contrast administration, noncontrast localization images were obtained. Subsequently, multidetector volumetric imaging was performed from the thoracic inlet to below the diaphragms following the administration of 84 mL Optiray 320 intravenous contrast. No contrast reaction reported. Sagittal, coronal, and MIP oblique sagittal reformatted images were obtained on the CT workstation, uploaded to PACS, and reviewed. Total exam dose-length product 554 mGy-cm. FINDINGS: QUALITY OF STUDY/CONTRAST BOLUS: Satisfactory PULMONARY ARTERIES: There is motion in the mid to lower lungs. No central pulmonary embolism. The segmental lower lobe pulmonary arteries are somewhat obscured by motion. Otherwise the segmental pulmonary arteries are patent. THORACIC AORTA: No aneurysm or dissection. LUNG: There is breathing artifact in the lower lungs as well as dependent change. There are extensive emphysematous changes within the lungs bilaterally. No areas of consolidation. Due to motion the previously described 2 mm scattered calcified and noncalcified pulmonary nodules are difficult to discretely identify on the current study. PLEURA: No pleural effusion or pneumothorax. MEDIASTINUM: Normal heart size. No pericardial effusion. No hilar lymphadenopathy. Scattered mediastinal lymph nodes are noted, the largest in the precarinal region measuring up to 1 cm in short axis, unchanged. No discrete thyroid lesions. There is mild calcification in the region of the aortic valve. No evidence of septal bowing or right heart strain. CHEST WALL/AXILLA: No axillary or internal mammary lymphadenopathy. There is stable right-sided gynecomastia on the retroareolar region. OSSEOUS STRUCTURES: Multilevel thoracic spondylosis without compression deformity or evidence of acute osseous abnormality. Stable hemangioma at T3. UPPER ABDOMEN: Unremarkable. No reflux of contrast into the hepatic veins to suggest elevated right heart pressures. IMPRESSION: There is motion in the mid to lower aspect of the imaged volume. No central pulmonary emboli. The segmental lower lobe pulmonary emboli are somewhat obscured by artifact, elsewhere no segmental pulmonary emboli. No area of consolidation. Nonspecific mediastinal lymph nodes measuring up to 1 cm in short axis, unchanged. Tiny scattered calcified and noncalcified pulmonary nodules described on the prior study are not well resolved currently due to motion. VTE: negative
[2017-10-18 22:48] VITALS: BP 106/60
[2017-10-19 07:00] VITALS: BP 130/99
--- NOTE | 2017-10-19 09:04 | PN- Housestaff ---
ErichFerrisburgh 10/19/17 0904: Subjective Follow-up For: Acute on chronic hypoxic respiratory failure due to COPD exacerbation. Subjective: No overnight events. She remained afebrile overnight. Pain seen and examined this morning. He was sitting in chair comfortably. Using 6 L of oxygen and maintaining saturations 93%. Patient denied any chest pain, nausea, vomiting, chills, fever, lightheadedness, abdominal pain and dysuria. He reported intermittent cough but it's dry. We will try to wean off the oxygen and ambulate the patient and check his saturations. Review of Systems Constitutional: Reports: no symptoms. EENTM: Reports: no symptoms. Cardiovascular: Reports: no symptoms. Respiratory: Reports: cough. Gastrointestinal: Reports: no symptoms. Genitourinary: Reports: no symptoms. Musculoskeletal: Reports: no symptoms. Neurological/Psychological: Reports: no symptoms. Objective Last 24 Hrs of Vital Signs/I&O Vital Signs Date Time Temp Pulse Resp B/P B/P Pulse O2 O2 Flow FiO2 Mean Ox Delivery Rate 10/19 0700 97.7 74 20 130/99 93 Nasal 7.0L Cannula 10/19 0000 CPAP 10/18 2248 98.5 65 20 106/60 91 Nasal 7.0L Cannula 10/18 1856 90 Nasal 8L Cannula 10/18 1422 97.7 75 18 118/70 90 Nasal 7.0L Cannula 10/18 1212 91 Nasal 7.0L Cannula 10/18 1020 86 154/68 10/18 1020 86 154/68 10/18 0926 94 Nasal 6.0L Cannula 10/18 0926 93 Intake & Output 10/19 1600 10/19 0800 10/19 0000 Intake Total 200 Output Total Balance 200 Intake, IV 200 Physical Exam General Appearance: Alert, Oriented X3, Cooperative, No Acute Distress Skin Temp/Moisture Exam: Warm/Dry Sepsis Skin Exam (color): Normal for Ethnicity HEENT: Atraumatic, PERRLA, EOMI Neck: Supple Cardiovascular: Normal S1, Normal S2 Lungs: Clear to Auscultation Abdomen: Soft, No Tenderness Neurological: Normal Speech, Strength at 5/5 X4 Ext, Normal Tone, Sensation Intact Extremities: b/l grade1 pedal edema Assessment/Plan Assessment: Patient is a 59-year-old male with a PMH significant for HTN, 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 Yeager's office after he was found to have an O2 saturation of 75%. Acute on chronic hypoxic respiratory failure due to COPD exacerbation: -Continue oxygen supplementation to maintain oxygen saturation above 92%. Right now he is using 6 L of oxygen and maintaining saturation 93% -Continue IV Solu-Medrol -Continue TRC nebulization -D-dimer is a negative and CTA was done to rule out PE considering patient's hypoxemia that was negative. -Continue IV azithromycin -Continue CPAP during midnight -We will follow the pulmonology recommendations. #Chronic medical problems including HTN, HLD, DM, aortic stenosis seen on previous CT -Continue with home medications including amlodipine, lisinopril, oxybutynin, sertraline -Continue with insulin sliding scale -Will obtain echocardiogram to assess #DVT prophylaxis Subcutaneous heparin, Alps #CODE STATUS Full code Problem List: 1. COPD exacerbation 2. Acute and chronic respiratory failure with hypoxia Pain Ratin Pain Location: none Pain Goal: Remain pain free Pain Plan: tylenol for ,mild pain Tomorrow's Labs & Rationales: cbc/bep Fabiola BORGES,Rehana 10/19/17 1151: Attending MD Review Statement Attending Statement Attending MD Statement: examined this patient, discuss w/resident/PA/SPORT INTERNSHIP, agreed w/resident/PA/SPORT INTERNSHIP, reviewed EMR data (avail), discussed with nursing, discussed with case mgmt, amended to note Attending Assessment/Plan: Patient seen and examined. Resting comfortably. He is very excited this morning stating that he feels much better. He reports that he is able to ambulate to the bathroom without getting extremely winded which was the case at home. Denies shortness of breath at rest. CT angiogram done yesterday shows no evidence of pulmonary embolism. No area of consolidation noted. On examination he has poor entry bilaterally. No added sounds. Heart sounds are regular. No jugular venous distention. Trace peripheral edema. Echocardiogram. EF of 55%. No obvious regional wall motion abnormalities. Moderate pulmonary hypertension. Mild aortic stenosis. No pericardial effusion. Recommendations: -Wean down oxygen supplementation as tolerated. Keep saturation greater than 90 %. -Continue bronchodilator therapy. Administer a second dose of Solu-Medrol 1 today then discontinue. Begin patient on prednisone 40 mg orally daily tomorrow. -In the absence of convincing evidence of bronchospasm and any acute pulmonary process on imaging it appears that his hypoxemia secondary to progression of his advanced COPD. He will likely require higher than baseline oxygen supplementation at the time of discharge.
[2017-10-19 09:18] LABS: ABSOLUTE BASOPHIL COUNT 0 /CUMM (0.0-0.2); ABSOLUTE EOSINOPHIL COUNT 0 /CUMM (0.0-0.7); ABSOLUTE MONOCYTE COUNT 0.5 /CUMM (0.10-0.60)
[2017-10-19 09:43] LABS: ABSOLUTE GRANULOCYTE CT 10.9 /CUMM (1.4-6.5); ABSOLUTE LYMPH COUNT 0.9 /CUMM (1.2-3.4); BASOPHIL % 0.1 % (0.0-2.0); EOSINOPHIL % 0 % (0-5); GRANULOCYTE % 88.9 % (42.2-75.2); HEMATOCRIT 41.6 % (42-52); MEAN CORPUSCULAR HGB 30.5 PG (27.0-31.0); MEAN CORPUSCULAR HGB CONC 33.4 G/DL (33.0-37.0); MEAN CORPUSCULAR VOLUME 91.4 FL (80.0-94.0); MEAN PLATELET VOLUME 10.1 FL (7.4-10.4); RBC DISTRIBUTION WIDTH 13.4 % (11.5-14.5); RED BLOOD CELL CT 4.55 /CUMM (4.70-6.10)
[2017-10-19 09:53] LABS: WHITE BLOOD CELL COUNT 12.2 /CUMM (4.8-10.8)
[2017-10-19 14:39] VITALS: BP 140/70
--- NOTE | 2017-10-19 16:04 | PN- Pulmonary ---
Subjective HPI/Critical Care Issues: No overnight events. She remained afebrile overnight. Pain seen and examined this morning. He was sitting in chair comfortably. Using 6 L of oxygen and maintaining saturations 93%. Patient denied any chest pain, nausea, vomiting, chills, fever, lightheadedness, abdominal pain and dysuria. He reported intermittent cough but it's dry. We will try to wean off the oxygen and ambulate the patient and check his saturations. Review of Systems Constitutional: Reports: no symptoms. EENTM: Reports: no symptoms. Cardiovascular: Reports: no symptoms. Respiratory: Reports: cough. Gastrointestinal: Reports: no symptoms. Genitourinary: Reports: no symptoms. Musculoskeletal: Reports: no symptoms. Neurological/Psychological: Reports: no symptoms. Objective Current Medications: Current Medications Sig/Delia Start time Last Medication Dose Route Stop Time Status Admin Albuterol Sulfate 3 ML BID 10/18 1000 AC 10/19 INH 1042 Amlodipine Besylate 2.5 MG DAILY 10/18 1000 AC 10/19 PO 0956 Aspirin Buffered 81 MG DAILY 10/18 1000 AC 10/19 PO 0956 Atorvastatin Calcium 20 MG 1700 10/18 1700 AC 10/18 PO 1724 Azithromycin 500 MG 2100 10/18 2100 AC 10/18 Sodium Chloride 250 ML IV 2139 Budesonide/ 2 PUF BID 10/17 2200 AC 10/19 Formoterol Fumarate INH 0956 Cholecalciferol 1,000 IU DAILY 10/18 1000 AC 10/19 PO 0956 Heparin Sodium 5,000 UNIT Q8 10/170 AC 10/19 (Porcine) SC 1451 Insulin Aspart 0 TIDAC 10/18 0800 AC 10/18 SC 1724 Lisinopril 20 MG DAILY 10/18 1000 AC 10/19 PO 0956 Lorazepam 0.5 MG BID 10/17 2200 AC 10/19 PO 10/24 2159 0956 Methylprednisolone 40 MG Q8 10/18 0600 AC 10/19 IV 10/19 2300 1451 Oxybutynin Chloride 5 MG BID 10/18 1000 AC 10/19 PO 0956 Prednisone 40 MG DAILY 10/20 1000 AC PO Prednisone 40 MG DAILY 10/19 1232 DC PO Sertraline HCl 150 MG DAILY 10/18 1000 AC 10/19 PO 0956 Vital Signs & I&O Last 24 Hrs of Vitals and I&O: Vital Signs Date Time Temp Pulse Resp B/P B/P Pulse O2 O2 Flow FiO2 Mean Ox Delivery Rate 10/19 1439 98.0 68 20 140/70 94 Nasal 7.0L Cannula 10/19 1045 93 Nasal 8L Cannula 10/19 0956 80 162/84 10/19 0956 80 162/84 10/19 0800 99 Nasal 8L Cannula 10/19 0700 97.7 74 20 130/99 93 Nasal 7.0L Cannula 10/19 0000 CPAP 10/18 2248 98.5 65 20 106/60 91 Nasal 7.0L Cannula 10/18 1856 90 Nasal 8L Cannula Intake & Output 10/19 1600 10/19 0800 10/19 0000 Intake Total 770 Output Total Balance 770 Intake, IV 200 Intake, Oral 570 Number 0 Bowel Movements Impression/Plan Impression/Plan Impression/Plan: Oxygen saturation 8 L 95% HNT exam shows no adenopathy exam of his chest shows diminished breath sounds there are no wheezes heard cardiac exam is regular S1 and S2 abdomen is soft nontender there's no edema IMPRESSION: There is motion in the mid to lower aspect of the imaged volume. No central pulmonary emboli. The segmental lower lobe pulmonary emboli are somewhat obscured by artifact, elsewhere no segmental pulmonary emboli. No area of consolidation. Nonspecific mediastinal lymph nodes measuring up to 1 cm in short axis, unchanged. Tiny scattered calcified and noncalcified pulmonary nodules described on the prior study are not well resolved currently due to motion. VTE: negative DICTATED BY: Merlene Moralez MD DATE/TIME DICTATED:10/18/171548 67-year-old with severe COPD chronic hypoxic history failure admitted with increased shortness breath secondary to exacerbation of COPD and acute on chronic acute hypoxic respiratory failure. Patient's prior Mod pulm htn with corpulmonale REC cont steroids and reduce to po prednisone Change to po ceftin Increase activity REduce oxygen will follow
[2017-10-19 22:00] VITALS: BP 150/80
[2017-10-20 06:57] VITALS: BP 162/94
--- NOTE | 2017-10-20 08:30 | PN- Housestaff ---
[facility] 10/20/17 0830: Subjective Follow-up For: Acute on chronic hypoxic respiratory failure due to COPD exacerbation. Subjective: No overnight events. Patient remained afebrile overnight. Patient seen and examined this morning. He was sitting in bed comfortably. Using 5 L of oxygen and maintaining saturation 91%. Patient denied any chest pain, short of breath, nausea, vomiting, abdominal pain, chills, fever, lightheadedness and dysuria. Patient walked around yesterday on oxygen and he didn't desaturate. Patient is using CPAP at nighttime. Review of Systems Constitutional: Reports: no symptoms. EENTM: Reports: no symptoms. Cardiovascular: Reports: no symptoms. Respiratory: Reports: no symptoms. Gastrointestinal: Reports: no symptoms. Genitourinary: Reports: no symptoms. Musculoskeletal: Reports: no symptoms. Neurological/Psychological: Reports: no symptoms. Objective Last 24 Hrs of Vital Signs/I&O Vital Signs Date Time Temp Pulse Resp B/P B/P Pulse O2 O2 Flow FiO2 Mean Ox Delivery Rate 10/20 0922 162/94 10/20 0922 162/94 10/20 0800 Nasal 8L Cannula 10/20 0657 97.4 70 20 162/94 92 10/20 0000 92 Nasal 6.0L Cannula 10/19 2200 97.6 71 20 150/80 92 Nasal 7.0L Cannula 10/19 1920 94 Nasal 8L Cannula 10/19 1600 Nasal 8L Cannula 10/19 1439 98.0 68 20 140/70 94 Nasal 7.0L Cannula 10/19 1045 93 Nasal 8L Cannula Intake & Output 10/20 1600 10/20 0800 10/20 0000 Intake Total 810 2620 Output Total 450 650 Balance 360 1970 Intake, IV 0 270 Intake, Oral 810 2350 Number 0 Bowel Movements Output, Urine 450 650 Physical Exam General Appearance: Alert, Oriented X3, Cooperative, No Acute Distress Skin Temp/Moisture Exam: Warm/Dry HEENT: Atraumatic, PERRLA, EOMI Neck: Supple Cardiovascular: Normal S1, Normal S2 Lungs: Clear to Auscultation Abdomen: Soft, No Tenderness Neurological: Normal Speech, Strength at 5/5 X4 Ext, Normal Tone, Sensation Intact Extremities: No Edema Assessment/Plan Assessment: Patient is a 59-year-old male with a PMH significant for HTN, O2 dependent COPD on 4.5 L home oxygen, XAVIER on nocturnal CPAP, HLD, type II DM, depression who presented to the ED from Dr. Yeager's office after he was found to have an O2 saturation of 75%. Acute on chronic hypoxic respiratory failure due to COPD exacerbation: -Continue oxygen supplementation to maintain oxygen saturation above 92%. Right now he is using 6 L of oxygen and maintaining saturation 93% -Continue IV Solu-Medrol -Continue TRC nebulization -D-dimer is a negative and CTA was done to rule out PE considering patient's hypoxemia that was negative. -Continue IV azithromycin -Continue CPAP during midnight -We will follow the pulmonology recommendations. Chronic medical problems including HTN, HLD, DM, aortic stenosis seen on previous CT -Continue with home medications including amlodipine, lisinopril, oxybutynin, sertraline -Continue with insulin sliding scale -Will obtain echocardiogram to assess DVT prophylaxis: Subcutaneous heparin, Alps CODE STATUS: Full code Problem List: 1. Acute and chronic respiratory failure with hypoxia 2. COPD exacerbation Pain Ratin Pain Location: none Pain Goal: Remain pain free Pain Plan: tylenol fro mild pain Tomorrow's Labs & Rationales: none Fabiola BORGES,Rehana 10/20/17 0958: Attending MD Review Statement Attending Statement Attending MD Statement: examined this patient, discuss w/resident/PA/LEAD MANUFACTURING TECHNICIAN, agreed w/resident/PA/LEAD MANUFACTURING TECHNICIAN, reviewed EMR data (avail), discussed with nursing, discussed with case mgmt, amended to note Attending Assessment/Plan: Patient seen and examined. He is very late and reporting that he feels much better compared to presentation. Although he is reported to be saturating 91% on 8 L in the E HR he was on 5 L of oxygen when I examined him this morning, checks his pulse ox and found to be 91%. At baseline he is on 4-5 L of oxygen. On examination although air entry is diminished bilaterally I do feel it is a little better than the past two days. He has no added breath sounds. He has no jugular venous distention. He has no peripheral edema. Pulmonary consultation done yesterday appreciated. Recommendations: -Continue oral prednisone taper. Transition patient to azithromycin orally and completed 5 days of therapy. -Continue to mobilize patient as tolerated. -Anticipate discharge in the next 24-48 hours if clinical status remains stable. -Blood pressure noted to be mildly elevated on occasion during this hospitalization. Continue his amlodipine and lisinopril for now and reevaluate at the time of discharge.
--- NOTE | 2017-10-20 13:39 | PN- Pulmonary ---
Subjective HPI/Critical Care Issues: No overnight events. Patient remained afebrile overnight. Patient seen and examined this morning. He was sitting in bed comfortably. Using 5 L of oxygen and maintaining saturation 91%. Patient denied any chest pain, short of breath, nausea, vomiting, abdominal pain, chills, fever, lightheadedness and dysuria. Patient walked around yesterday on oxygen and he didn't desaturate. Patient is using CPAP at nighttime. Objective Current Medications: Current Medications Sig/Delia Start time Last Medication Dose Route Stop Time Status Admin Albuterol Sulfate 3 ML BID 10/18 1000 AC 10/20 INH 0819 Amlodipine Besylate 2.5 MG DAILY 10/18 1000 AC 10/20 PO 0922 Aspirin Buffered 81 MG DAILY 10/18 1000 AC 10/20 PO 0922 Atorvastatin Calcium 20 MG 1700 10/18 1700 AC 10/19 PO 1744 Azithromycin 250 MG DAILY 10/20 1038 AC PO Azithromycin 500 MG 2100 10/18 2100 DC 10/19 Sodium Chloride 250 ML IV 2006 Budesonide/ 2 PUF BID 10/17 2200 AC 10/20 Formoterol Fumarate INH 0922 Cholecalciferol 1,000 IU DAILY 10/18 1000 AC 10/20 PO 0922 Heparin Sodium 5,000 UNIT Q8 10/17 2200 AC 10/20 (Porcine) SC 1259 Insulin Aspart 0 TIDAC 10/18 0800 AC 10/20 SC 1259 Lisinopril 20 MG DAILY 10/18 1000 AC 10/20 PO 0922 Lorazepam 0.5 MG BID 10/17 2200 AC 10/20 PO 10/24 2159 0922 Methylprednisolone 40 MG Q8 10/18 0600 DC 10/19 IV 10/19 2300 2007 Oxybutynin Chloride 5 MG BID 10/18 1000 AC 10/20 PO 0922 Prednisone 10 MG DAILY 10/30 1000 AC PO 11/02 0959 Prednisone 20 MG DAILY 10/27 1000 AC PO 10/30 0859 Prednisone 30 MG DAILY 10/24 1000 AC PO 10/27 0959 Prednisone 40 MG DAILY 10/21 1000 CAN PO 11/02 0959 Prednisone 40 MG DAILY 10/21 1000 AC PO 10/24 0959 Prednisone 40 MG DAILY 10/20 1000 DC 10/20 PO 0922 Sertraline HCl 150 MG DAILY 10/18 1000 AC 10/20 PO 0922 Vital Signs & I&O Last 24 Hrs of Vitals and I&O: Vital Signs Date Time Temp Pulse Resp B/P B/P Pulse O2 O2 Flow FiO2 Mean Ox Delivery Rate 10/20 1147 92 Nasal 6.0L Cannula 10/20 0922 162/94 10/20 0922 162/94 10/20 0800 Nasal 8L Cannula 10/20 0657 97.4 70 20 162/94 92 10/20 0000 92 Nasal 6.0L Cannula 10/19 2200 97.6 71 20 150/80 92 Nasal 7.0L Cannula 10/19 1920 94 Nasal 8L Cannula 10/19 1600 Nasal 8L Cannula 10/19 1439 98.0 68 20 140/70 94 Nasal 7.0L Cannula Intake & Output 10/20 1600 10/20 0800 10/20 0000 Intake Total 810 2620 Output Total 450 650 Balance 360 1970 Intake, IV 0 270 Intake, Oral 810 2350 Number 0 Bowel Movements Output, Urine 450 650 Impression/Plan Impression/Plan Impression/Plan: Oxygen saturation 6 L 95% HNT exam shows no adenopathy exam of his chest shows diminished breath sounds there are no wheezes heard cardiac exam is regular S1 and S2 abdomen is soft nontender there's no edema IMPRESSION: There is motion in the mid to lower aspect of the imaged volume. No central pulmonary emboli. The segmental lower lobe pulmonary emboli are somewhat obscured by artifact, elsewhere no segmental pulmonary emboli. No area of consolidation. Nonspecific mediastinal lymph nodes measuring up to 1 cm in short axis, unchanged. Tiny scattered calcified and noncalcified pulmonary nodules described on the prior study are not well resolved currently due to motion. VTE: negative DICTATED BY: Merlene Moralez MD DATE/TIME DICTATED:10/18/171548 67-year-old with severe COPD chronic hypoxic history failure admitted with increased shortness breath secondary to exacerbation of COPD and acute on chronic acute hypoxic respiratory failure. Mod pulm htn with corpulmonale REC cont steroids and tapering prednisone Change to po abx Increase activity REduce oxygen will follow
[2017-10-20 14:55] VITALS: BP 140/60
[2017-10-20 21:55] VITALS: BP 140/80
[2017-10-21 06:49] VITALS: BP 136/74
--- NOTE | 2017-10-21 07:59 | PN- Housestaff ---
Yaneli BORGES,Senthil 10/21/17 0758: Subjective Follow-up For: COPD exacerbation Acute on chronic hypoxic respiratory failure Subjective: Patient was seen and examined at bedside. He is resting comfortably. He had no acute events overnight. He states that he is no longer short of breath at rest, but become short of breath when ambulating to the restroom. This is much improved from the shortness of breath on exertion he was experiencing prior to admission. He continues to have a dry cough. He offers no other complaints and currently denies any chest pain, nausea, vomiting, fever, chills, lightheadedness, dizziness. Review of Systems Constitutional: Denies: chills, fever. Cardiovascular: Denies: chest pain, palpitations. Respiratory: Reports: cough, short of breath. Gastrointestinal: Reports: no symptoms. Genitourinary: Reports: no symptoms. Musculoskeletal: Reports: no symptoms. Objective Last 24 Hrs of Vital Signs/I&O Vital Signs Date Time Temp Pulse Resp B/P B/P Pulse O2 O2 Flow FiO2 Mean Ox Delivery Rate 10/21 0649 97.3 69 20 136/74 90 10/21 0000 90 CPAP 6.0L 10/20 2155 97.9 79 20 140/80 90 Nasal 5.0L Cannula 10/20 1919 92 Nasal 6.0L Cannula 10/20 1600 Nasal 8L Cannula 10/20 1455 98.3 68 20 140/60 93 Nasal 5.0L Cannula 10/20 1147 92 Nasal 6.0L Cannula 10/20 0922 162/94 10/20 0922 162/94 10/20 0800 Nasal 8L Cannula Intake & Output 10/21 0800 10/21 0000 10/20 1600 Intake Total 350 1590 Output Total Balance 350 1590 Intake, IV 0 Intake, Oral 350 1590 Number 0 Bowel Movements Output, Urine Physical Exam General Appearance: Alert, Oriented X3, Cooperative, No Acute Distress Skin Temp/Moisture Exam: Warm/Dry Cardiovascular: Regular Rate, Normal S1, Normal S2, No Murmurs Lungs: diminished breath sounds diffusely, no appreciable wheezing, patient is on a respiratory distress, able to speak in full sentences, no use of accessory muscles, currently on 7 L O2 nasal cannula Abdomen: Normal Bowel Sounds, Soft, No Tenderness Neurological: Normal Speech, Sensation Intact Extremities: No Clubbing, No Cyanosis, trace edema of the distal lower extremities bilaterally Current Medications: Current Medications Sig/Delia Start time Last Medication Dose Route Stop Time Status Admin Albuterol Sulfate 3 ML BID 10/18 1000 AC 10/20 INH 1917 Amlodipine Besylate 2.5 MG DAILY 10/18 1000 AC 10/20 PO 0922 Aspirin Buffered 81 MG DAILY 10/18 1000 AC 10/20 PO 0922 Atorvastatin Calcium 20 MG 1700 10/18 1700 AC 10/20 PO 1748 Azithromycin 250 MG DAILY 10/20 1038 AC 10/20 PO 1749 Azithromycin 500 MG 2100 10/18 2100 DC 10/19 Sodium Chloride 250 ML IV 2006 Budesonide/ 2 PUF BID 10/17 2200 AC 10/20 Formoterol Fumarate INH 210 Cholecalciferol 1,000 IU DAILY 10/18 1000 AC 10/20 PO 0922 Heparin Sodium 5,000 UNIT Q8 10/17 2200 AC 10/21 (Porcine) SC 0629 Insulin Aspart 0 TIDAC 10/18 0800 AC 10/20 SC 1259 Lisinopril 20 MG DAILY 10/18 1000 AC 10/20 PO 0922 Lorazepam 0.5 MG BID 10/17 2200 AC 10/20 PO 10/24 2159 2104 Oxybutynin Chloride 5 MG BID 10/18 1000 AC 10/20 PO 2104 Prednisone 10 MG DAILY 10/30 1000 AC PO 11/02 0959 Prednisone 20 MG DAILY 10/27 1000 AC PO 10/30 0959 Prednisone 30 MG DAILY 10/24 1000 AC PO 10/27 0959 Prednisone 40 MG DAILY 10/21 1000 CAN PO 11/02 0959 Prednisone 40 MG DAILY 10/21 1000 AC PO 10/24 0959 Prednisone 40 MG DAILY 10/20 1000 DC 10/20 PO 0922 Sertraline HCl 150 MG DAILY 10/18 1000 AC 10/20 PO 0922 Assessment/Plan Assessment: Patient is a 59-year-old male with a PMH significant for HTN, 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 Yeager's office after he was found to have an O2 saturation of 75%. Acute on chronic hypoxic respiratory failure due to COPD exacerbation: -Continue oxygen supplementation to maintain oxygen saturation above 92%. Right now he is using 6 L of oxygen and maintaining saturation 91-93% -Continue Pednisone taper, currently on 40 mg daily -Continue TRC nebulization -D-dimer is a negative and CTA was done to rule out PE considering patient's hypoxemia that was negative. -Continue PO azithromycin, day 4 -Continue noctournal CPAP - pulmonary nodules seen on CT, will recommend following up with up with medical attendant, Dr. Yeager as an outpatient for monitoring. -We will follow the pulmonology recommendations. Chronic medical problems including HTN, HLD, DM, aortic stenosis seen on previous CT -Continue with home medications including amlodipine, lisinopril, oxybutynin, sertraline -Continue with insulin sliding scale -echocardiogram was done to assess , showed mild and moderate pulmonary htn DVT prophylaxis: Subcutaneous heparin, Alps CODE STATUS: Full code Problem List: 1. COPD exacerbation 2. Acute and chronic respiratory failure with hypoxia Pain Ratin Pain Location: none Pain Goal: Remain pain free Pain Plan: pain pathway Tomorrow's Labs & Rationales: cbc, bep Fabiola BORGES,Rehana 10/21/17 0903: Attending MD Review Statement Attending Statement Attending MD Statement: examined this patient, discuss w/resident/PA/FORKLIFT TRUCK OPERATOR, agreed w/resident/PA/FORKLIFT TRUCK OPERATOR, reviewed EMR data (avail), discussed with nursing, discussed with case mgmt, amended to note Attending Assessment/Plan: Patient seen and examined. Resting comfortably and not in acute distress. No issues overnight. Nursing staff reports that they 5 L of oxygen patient was saturating in the low 90s at rest. However following ambulation to the bathroom his saturation decreased to 75% on 5 L of oxygen. Patient however reports feeling better. He states that he is less short of breath with ambulation in hospital compared to when he was at home. At home he was on 4-5 L of oxygen at baseline. Workup has been unrevealing for an acute etiology for his acute on chronic hypoxic respiratory failure. Imaging showed no evidence of an acute pneumonia. Pulmonary embolism has been ruled out. CT imaging had suggested aortic sclerosis however echocardiogram showed only mild aortic stenosis. He does have moderate pulmonary hypertension. On examination and she remains poor bilaterally with no added sounds. He has no jugular venous distention. He does have trace bilateral pedal edema. Problems: 1. Acute on chronic hypoxic respiratory failure. 2. Advanced COPD 3. Moderate pulmonary hypertension 4. Obstructive sleep apnea compliant with CPAP therapy at night 5. Possible component of obesity hypoventilation syndrome. 6. Pulmonary nodules Plan: -His comorbidities listed above are likely contributing to his worsening hypoxemia. He is currently on a prednisone taper for presumed COPD exacerbation and he is receiving empiric antibiotic therapy with azithromycin. -He will likely be discharged on a higher flow oxygen. -He has been advised that he will need to limit his activities in order to avoid worsening his hypoxemia. -Recommend trial of Lasix 40 mg IV 1 today -Begin patient on incentive spirometry as he is noted to have atelectasis on imaging. -Follow up with the pulmonology service for further recommendations. -Management of his pulmonary nodules as recommended by the pulmonology service
--- NOTE | 2017-10-21 12:28 | PN- Pulmonary ---
Subjective HPI/Critical Care Issues: Clinically stable Objective Current Medications: Current Medications Sig/Delia Start time Last Medication Dose Route Stop Time Status Admin Albuterol Sulfate 3 ML BID 10/18 1000 AC 10/21 INH 1105 Amlodipine Besylate 2.5 MG DAILY 10/18 1000 AC 10/21 PO 1150 Aspirin Buffered 81 MG DAILY 10/18 1000 AC 10/21 PO 1145 Atorvastatin Calcium 20 MG 1700 10/18 1700 AC 10/20 PO 1748 Azithromycin 250 MG DAILY 10/20 1038 AC 10/21 PO 1146 Budesonide/ 2 PUF BID 10/17 2200 AC 10/21 Formoterol Fumarate INH 1146 Cholecalciferol 1,000 IU DAILY 10/18 1000 AC 10/21 PO 1146 Furosemide 40 MG ONCE ONE 10/21 1200 DC IV 10/21 1201 Heparin Sodium 5,000 UNIT Q8 10/17 2200 AC 10/21 (Porcine) SC 0629 Insulin Aspart 0 TIDAC 10/18 0800 AC 10/20 SC 1259 Lisinopril 20 MG DAILY 10/18 1000 AC 10/21 PO 1149 Lorazepam 0.5 MG BID 10/17 2200 AC 10/21 PO 10/24 2159 1152 Oxybutynin Chloride 5 MG BID 10/18 1000 AC 10/20 PO 2104 Prednisone 10 MG DAILY 10/30 1000 AC PO 11/02 0959 Prednisone 20 MG DAILY 10/27 1000 AC PO 10/30 0959 Prednisone 30 MG DAILY 10/24 1000 AC PO 10/27 0959 Prednisone 40 MG DAILY 10/21 1000 AC 10/21 PO 10/24 0959 1146 Sertraline HCl 150 MG DAILY 10/18 1000 AC 10/21 PO 1146 Vital Signs & I&O Last 24 Hrs of Vitals and I&O: Vital Signs Date Time Temp Pulse Resp B/P B/P Pulse O2 O2 Flow FiO2 Mean Ox Delivery Rate 10/21 1150 70 118/60 10/21 1149 70 118/60 10/21 1107 91 Nasal 6.0L Cannula 10/21 0649 97.3 69 20 136/74 90 10/21 0000 90 CPAP 6.0L 10/205 97.9 79 20 140/80 90 Nasal 5.0L Cannula 10/20 1919 92 Nasal 6.0L Cannula 10/20 1600 Nasal 8L Cannula 10/20 1455 98.3 68 20 140/60 93 Nasal 5.0L Cannula Intake & Output 10/21 1600 10/21 0800 10/21 0000 Intake Total 350 1250 Output Total Balance 350 1250 Intake, Oral 350 1250 Number 0 Bowel Movements Output, Urine Impression/Plan Impression/Plan Impression/Plan: Oxygen saturation 6 L 95% HNT exam shows no adenopathy exam of his chest shows diminished breath sounds there are no wheezes heard cardiac exam is regular S1 and S2 abdomen is soft nontender there's no edema IMPRESSION: There is motion in the mid to lower aspect of the imaged volume. No central pulmonary emboli. The segmental lower lobe pulmonary emboli are somewhat obscured by artifact, elsewhere no segmental pulmonary emboli. No area of consolidation. Nonspecific mediastinal lymph nodes measuring up to 1 cm in short axis, unchanged. Tiny scattered calcified and noncalcified pulmonary nodules described on the prior study are not well resolved currently due to motion. VTE: negative DICTATED BY: Merlene Moralez MD DATE/TIME DICTATED:10/18/171548 67-year-old with severe COPD chronic hypoxic history failure admitted with increased shortness breath secondary to exacerbation of COPD and acute on chronic acute hypoxic respiratory failure. Mod pulm htn with corpulmonale REC cont steroids and tapering prednisone Change to po abx Increase activity REduce oxygen will follow
[2017-10-21 15:18] VITALS: BP 142/80
--- NOTE | 2017-10-21 22:20 | Discharge Summary ---
Visit Information Visit Dates Admission Date: 10/17/17 Discharge Date: 10/22/17 Hospital Course Course Attending Physician: Rehana Hicks MD Primary Care Physician: Wendy Cloud Other Care Providers: Ladarius Yeager MD Consulting Request: Consulting Specialty: Pulmonary Disease Hospital Course: Patient is a 67-year-old male with a PMH significant for HTN, XAVIER on CPAP,HLD, O2 dependent COPD, 40 pack year smoking history (quit 10 years ago), DM depression, and BPH who presented to the [facility] ED from Dr. Yeager 's office after a having 75% pulse ox reading and a 2 week history of worsening dypnea on exertion and a 2 day history of productive cough with thick yellow sputum. He also had increased O2 demmand using 5 L O2 up from baseline 4-4.5L. VS on admission: T 97.5, P 90, RR 30, BP 164/88, Pulse ox 84% on 5 L O2 NC. Labs on admission:WBC 12, H/H 16.1/48.2, INR 1.34, D-dimer 226, Na 146, glucose 116, trop neg, ABG 7.49/30/69/23. EKG showed NSR with T wave inversion in V2-6 with no previous EKG on file for comparison. Patient was admitted to the general medicine floor for treatment of the following problems #Acute on chronic hypoxic respiratory failure secondary to COPD exacerbation Patient was hypoxic at Dr. Yeager's office and again at presentation in the ED despite increased O2 supplementation above baseline. On exam he was found to have dimished breath sounds diffusely and no wheezing. He was started on IV solumedrol and Azithromycin. CTA was done, and ruled out PE. A pulmonary consult was placed with Dr. Yeager. Patient recieved total respiratory care, nebulizer treatment, and noctournal CPAP. IV solumedrol was tapered, but it was difficult wean patient down to baseline O2. A trial dose of IV lasix was given on hospital day 4. Patient was discharged on a Prednisone taper and with Azithromycin to complete a 10 day course. #Chronic medical problems including HTN, HLD, DM, BPH, depression Home medications were continued on this admission. For diabetes management metformin was held and he was started on an insulin sliding scale. DVT prophylaxis was addressed with SC heparin and ALPS. Allergies: Coded Allergies: No Known Allergies (10/17/17) Significant Procedures: CTA chest There is motion in the mid to lower aspect of the imaged volume. No central pulmonary emboli. The segmental lower lobe pulmonary arteries are somewhat obscured by artifact, elsewhere no segmental pulmonary emboli. No area of consolidation. Nonspecific mediastinal lymph nodes measuring up to 1 cm in short axis, unchanged. Tiny scattered calcified and noncalcified pulmonary nodules described on the prior study are not well resolved currently due to motion. VTE: negative Echocardiogram Technically difficult study. Left ventricle not well visualized, grossly normal. Left ventricular ejection fraction is estimated at > 55 %. No obvious regional wall motion abnormalities. Right ventricle not well visualized, grossly normal. Aortic valve not well visualized. Likely mild aortic stenosis. Likely moderate pulmonary hypertension. No pericardial effusion. CXR Emphysema. Hazy opacity of the lung bases favors atelectasis. No evidence of edema or dense consolidation. Disposition Summary Disposition Principal Diagnosis: COPD exacerbation Additional Diagnosis: Acute on chronic hypoxic respiratory failure Discharge Disposition: home or self care Discharge Instructions General Discharge Information Code Status: Full Code Patient's Diet: Heart Healthy Patient's Activity: As tolerated Follow-Up Instructions/Appts: Follow up with Dr. Yeager within one week of discharge. Follow up with Wendy Chan within one week of discharge. Medications at Discharge Discharge Medications: Continue taking these medications: Lorazepam (Lorazepam) 0.5 MG TABLET 1 Tablet ORAL TWICE DAILY Comments: Last Taken:10/22/17 Time:9:30 M Oxybutynin Chloride (Oxybutynin Chloride ER) 10 MG TAB.ER.24 1 Tablet ORAL DAILY Qty = 90 Comments: Last Taken:10/22/17 Time:9:30 AM Quinapril HCl (Quinapril HCl) 20 MG TABLET 1 Tablet ORAL TWICE DAILY Qty = 180 Comments: Last Taken:LISINOPRIL GIVEN IN HOSP 10/22/17 Time:9:30 AM Sertraline HCl (Sertraline HCl) 100 MG TABLET 1.5 Tablet ORAL DAILY Qty = 135 Comments: Last Taken:10/22/17 Time:9:30 AM Budesonide/Formoterol Fumarate (Symbicort 160-4.5 Mcg Inhaler) 160 MCG-4.5 MCG/ ACTUATION HFA.AER.AD 2 Puff Inhale through mouth TWICE DAILY Qty = 10 Comments: Last Taken:10/22/17 Time:9:30 AM Amlodipine Besylate (Amlodipine Besylate) 2.5 MG TABLET 1 Tablet ORAL DAILY Qty = 90 Comments: Last Taken:10/22/17 Time:9:30 AM Atorvastatin Calcium (Atorvastatin Calcium) 20 MG TABLET 1 Tablet ORAL DAILY Qty = 90 Comments: Last Taken:10/21/17 Time:5:30 PM Aspirin (Ecotrin*) 81 MG TABLET.DR 1 Tablet ORAL DAILY Comments: Last Taken:10/22/17 Time:9:30 AM Cholecalciferol (Vitamin D3) (Vitamin D) 1,000 UNIT TABLET 1 Tablet ORAL DAILY Comments: Last Taken:10/22/17 Time:9:30 AM Metformin HCl (Metformin HCl ER) 500 MG TAB.ER.24 1 Tablet ORAL DAILY Comments: NOT GIVEN IN HOSPITAL INSULIN GIVEN IN HOSP Start taking the following new medications: Azithromycin (Azithromycin) 250 MG TABLET 1 Dose Pack ORAL As Directed Qty = 4 No Refills Instructions: 2 the first day followed by 1 for days 2-5. Comments: Last Taken:10/22/17 Time:9:30 AM Prednisone (Prednisone) 10 MG TABLET 1 Tablet ORAL TAPER Qty = 12 No Refills Instructions: . Comments: take 3 tabs on 10/23 and 10/24 take 2 tabs on 10/25 and 10/26 take one tab on 10/27 and 10/28 and stop Copies To: Toy BORGES,Ladarius Brown; Wendy Cloud
--- NOTE | 2017-10-21 22:23 | Patient Discharge Instructions ---
Discharge Instructions General Discharge Information You were seen/treated for: COPD exacerbation Special Instructions: Please follow up with your primary care physician within 1 week of discharge. Please follow up with Dr. Yeager within 1 week of discharge. Acute Coronary Syndrome Inclusion Criteria At DC or during hospital stay patient has or had the following: ACS DIAGNOSIS No Discharge Core Measures Meds if any: Prescribed or Continued at Discharge Meds if any: NOT Prescribed or Continued at Discharge Congestive Heart Failure Inclusion Criteria At DC or during hospital stay patient has or had the following: CHF DIAGNOSIS No Discharge Core Measures Meds if any: Prescribed or Continued at Discharge Meds if any: NOT Prescribed or Continued at Discharge Cerebrovascular accident Inclusion Criteria At DC or during hospital stay patient has or had the following: CVA/TIA Diagnosis No Discharge Core Measures Meds if any: Prescribed or Continued at Discharge Meds if any: NOT Prescribed or Continued at Discharge Venous thromboembolism Inclusion Criteria VTE Diagnosis No VTE Type NONE VTE Confirmed by (Test) NONE Discharge Core Measures - Per Current guidelines, there needs to be overlap - treatment for the first 5 days of Warfarin therapy. - If discharged on Warfarin prior to 5 days of - overlap therapy, the patient will need to be - assessed for post discharge needs including - *Post discharge parental anticoagulation - *Warfarin and/or parental anticoagulation education - *Follow up date to check INR post discharge At least 5 days overlap therapy as Inpatient No Meds if any: Prescribed or Continued at Discharge Note: Overlap Therapy is Warfarin and Anticoagulant Meds if any: NOT Prescribed or Continued at Discharge
[2017-10-21 22:57] VITALS: BP 110/60
[2017-10-22 07:11] VITALS: BP 122/84
--- NOTE | 2017-10-22 08:43 | PN- Pulmonary ---
Subjective HPI/Critical Care Issues: Patient feels shortness breath is markedly improved Objective Current Medications: Current Medications Sig/Delia Start time Last Medication Dose Route Stop Time Status Admin Albuterol Sulfate 3 ML BID 10/18 1000 AC 10/21 INH 2016 Amlodipine Besylate 2.5 MG DAILY 10/18 1000 AC 10/21 PO 1150 Aspirin Buffered 81 MG DAILY 10/18 1000 AC 10/21 PO 1145 Atorvastatin Calcium 20 MG 1700 10/18 1700 AC 10/21 PO 1731 Azithromycin 250 MG DAILY 10/20 1038 AC 10/21 PO 1146 Budesonide/ 2 PUF BID 10/17 2200 AC 10/21 Formoterol Fumarate INH 2157 Cholecalciferol 1,000 IU DAILY 10/18 1000 AC 10/21 PO 1146 Furosemide 40 MG ONCE ONE 10/21 1200 DC 10/21 IV 10/21 1201 1521 Heparin Sodium 5,000 UNIT Q8 10/17 2200 AC 10/22 (Porcine) SC 0504 Insulin Aspart 0 TIDAC 10/18 0800 AC 10/21 SC 1735 Lisinopril 20 MG DAILY 10/18 1000 AC 10/21 PO 1149 Lorazepam 0.5 MG BID 10/17 2200 AC 10/21 PO 10/24 2159 2158 Oxybutynin Chloride 5 MG BID 10/18 1000 AC 10/21 PO 2158 Prednisone 10 MG DAILY 10/30 1000 AC PO 11/02 0959 Prednisone 20 MG DAILY 10/27 1000 AC PO 10/30 0959 Prednisone 30 MG DAILY 10/24 1000 AC PO 10/27 0959 Prednisone 40 MG DAILY 10/21 1000 AC 10/21 PO 10/24 0959 1146 Sertraline HCl 150 MG DAILY 10/18 1000 AC 10/21 PO 1146 Vital Signs & I&O Last 24 Hrs of Vitals and I&O: Vital Signs Date Time Temp Pulse Resp B/P B/P Pulse O2 O2 Flow FiO2 Mean Ox Delivery Rate 10/22 710 97.6 72 20 122/84 92 10/22 0000 Nasal 6.0L Cannula 10/21 2256 97.7 72 20 110/60 91 Nasal 5.0L Cannula 10/21 203 93 Nasal 6.0L Cannula 10/21 1518 98.7 86 20 142/80 92 Nasal 5.0L Cannula 10/21 1150 70 118/60 10/21 1149 70 118/60 10/21 1107 91 Nasal 6.0L Cannula Intake & Output 10/22 1600 10/22 0800 10/22 0000 Intake Total Output Total 2900 Balance -2900 Output, Urine 2900 Oxygen saturation 5 L 92% exam of his chest is diminished breath sounds are no wheezes cardiac exam shows regular S1 and S2 without murmurs Impression/Plan Impression/Plan Impression/Plan: 67-year-old with severe COPD chronic hypoxic history failure admitted with increased shortness breath secondary to exacerbation of COPD and acute on chronic acute hypoxic respiratory failure. Patient's prior CT scan shows significant aortic sclerosis echo does not suggest significant aortic valve disease. There is evidence of pulmonary hypertension. Recommendations: Complete antibiotics and steroid taper and taper FiO2 his saturations allow. Continue nocturnal CPAP for sleep apnea. He appears stable for discharge and will be followed up in the office next week
--- NOTE | 2017-10-22 09:11 | PN- Housestaff ---
Nilson BORGES,Cindy 10/22/17 0911: Subjective Follow-up For: COPD exacerbation Acute on chronic hypoxic respiratory failure Subjective: Patient was seen and examined at bedside. He is resting comfortably. He had no acute events overnight. He states that he is no longer short of breath at rest, but become short of breath when ambulating to the restroom. . Also endorses mild dry cough. He offers no other complaints and currently denies any chest pain, nausea, vomiting, fever, chills, lightheadedness, dizziness. Review of Systems Constitutional: Denies: no symptoms. Cardiovascular: Denies: no symptoms. Respiratory: Reports: cough, short of breath. Gastrointestinal: Denies: no symptoms. Genitourinary: Denies: no symptoms. Musculoskeletal: Denies: no symptoms. Objective Last 24 Hrs of Vital Signs/I&O Vital Signs Date Time Temp Pulse Resp B/P B/P Pulse O2 O2 Flow FiO2 Mean Ox Delivery Rate 10/22 0952 91 Nasal 6.0L Cannula 10/22 08 Nasal 5.0L Cannula 10/22 0711 97.6 72 20 122/84 92 10/22 0000 Nasal 6.0L Cannula 10/21 2257 97.7 72 20 110/60 91 Nasal 5.0L Cannula 10/21 2038 93 Nasal 6.0L Cannula Intake & Output 10/22 1600 10/22 0800 10/22 0000 Intake Total Output Total 2900 Balance -2900 Output, Urine 2900 Physical Exam General Appearance: Alert, Oriented X3, Cooperative, No Acute Distress Cardiovascular: Normal S1, Normal S2, No Murmurs Lungs: decreased breath sounds bilaterally, on 5 L nasal cannula Abdomen: Normal Bowel Sounds, Soft, No Tenderness Extremities: No Clubbing, No Cyanosis, 1+ pitting edema bilateral Vascular: Normal Pulses Assessment/Plan Assessment: Patient is a 59-year-old male with a PMH significant for HTN, O2 dependent COPD on 4.5 L home oxygen, XAVIER on nocturnal CPAP, HLD, type II DM, depression who presented to the [facility] ED from Dr. Yeager's office after he was found to have an O2 saturation of 75%. Acute on chronic hypoxic respiratory failure due to COPD exacerbation: -Continue oxygen supplementation to maintain oxygen saturation above 92%. Right now he is using 5 L of oxygen and maintaining saturation 91-93% -Continue Pednisone taper, currently on 40 mg daily -Continue TRC nebulization -D-dimer is a negative and CTA was done to rule out PE considering patient's hypoxemia that was negative. -Continue PO azithromycin, day 5 -Continue noctournal CPAP - pulmonary nodules seen on CT, will recommend following up with up with bsw, Dr. Yeager as an outpatient for monitoring. -We will follow the pulmonology recommendations. #Chronic medical problems including HTN, HLD, DM, aortic stenosis seen on previous CT -Continue with home medications including amlodipine, lisinopril, oxybutynin, sertraline -Continue with insulin sliding scale -echocardiogram was done to assess , showed mild and moderate pulmonary htn Patient is a stable for discharge home today on prednisone taper and azithromycin DVT prophylaxis: Subcutaneous heparin, Alps CODE STATUS: Full code Problem List: 1. Acute and chronic respiratory failure with hypoxia 2. COPD exacerbation Pain Ratin Pain Location: N/A Pain Goal: Remain pain free Pain Plan: per pathway Tomorrow's Labs & Rationales: n/a DVT/Prophylaxis: mechanical, pharmacological Consulting Request: Consulting Specialty: Pulmonary Disease Mca House MD 10/22/17 1528: Attending MD Review Statement Attending Statement Attending MD Statement: examined this patient, discuss w/resident/PA/SOCCER COACH, agreed w/resident/PA/SOCCER COACH, reviewed EMR data (avail)
[2017-10-22 09:18] LABS: ABSOLUTE BASOPHIL COUNT 0 /CUMM (0.0-0.2); ABSOLUTE EOSINOPHIL COUNT 0.1 /CUMM (0.0-0.7); ABSOLUTE GRANULOCYTE CT 6.8 /CUMM (1.4-6.5); ABSOLUTE LYMPH COUNT 1.8 /CUMM (1.2-3.4); ABSOLUTE MONOCYTE COUNT 0.9 /CUMM (0.10-0.60); BASOPHIL % 0.2 % (0.0-2.0); EOSINOPHIL % 0.5 % (0-5); GRANULOCYTE % 71.3 % (42.2-75.2); MEAN CORPUSCULAR HGB 30.6 PG (27.0-31.0); MEAN CORPUSCULAR HGB CONC 33.5 G/DL (33.0-37.0); MEAN CORPUSCULAR VOLUME 91.4 FL (80.0-94.0); MEAN PLATELET VOLUME 9.7 FL (7.4-10.4); PLATELET COUNT 186 /CUMM (130-400); RBC DISTRIBUTION WIDTH 13.6 % (11.5-14.5); RED BLOOD CELL CT 5.18 /CUMM (4.70-6.10); WHITE BLOOD CELL COUNT 9.5 /CUMM (4.8-10.8)
[2017-10-22 09:37] LABS: HEMATOCRIT 47.4 % (42-52)
[2017-10-22] MEDS ORDERED: AZITHROMYCIN250 M1 PO ×2 (10:11→12:07)
[2017-10-22] MEDS ORDERED: PREDNISONE10 M2 PO ×2 (10:11→12:07)
== END 2017-10-22 13:25 | DRG 189 ==
LOC: ERH 15:05 → 2NB 19:04 → ERHI 19:04 → ENRESERV 19:53 → ENTRNSPT 21:14 → EDTRNSPT 21:25 → EDTRNSPTSTS 21:25 → 2NB 21:30 → CMPTRNSPT 21:44 → 2NB 10-18 07:51 → ENPENDDIS 10-22 12:00 → ENTRNSPT 10-22 13:12 → EDTRNSPT 10-22 13:15 → EDTRNSPTSTS 10-22 13:16 → 2NB 10-22 13:25 → CMPTRNSPT 10-22 13:30
PROVIDERS: Dermatology; Emergency Medicine; Internal Medicine Endocrinology, Diabetes & Metabolism
PROC: 5A09357 Assistance with Respiratory Ventilation, Less than 24 Consecutive Hours, Continuous Positive Airway Pressure (ICD-10-PCS; principal; 2017-10-17)
DX: J96.21 Acute and chronic respiratory failure with hypoxia (principal); E87.3 Alkalosis; I27.20 Pulmonary hypertension, unspecified; J44.1 Chronic obstructive pulmonary disease with (acute) exacerbation; Z99.81 Dependence on supplemental oxygen; E78.5 Hyperlipidemia, unspecified; G47.33 Obstructive sleep apnea (adult) (pediatric); E11.9 Type 2 diabetes mellitus without complications; N40.0 Benign prostatic hyperplasia without lower urinary tract symptoms; I10 Essential (primary) hypertension; F32.9 Major depressive disorder, single episode, unspecified; I35.0 Nonrheumatic aortic (valve) stenosis; R91.8 Other nonspecific abnormal finding of lung field; Z79.84 Long term (current) use of oral hypoglycemic drugs
CPT/HCPCS: 2NBSP; 36415; 82436; 87070; 87804; 87804-59; 93005; 93010; 93306; 96374; 96375; 99291; J0456; J0696; J1644; J1940; J2920; J2930; J3490; J7040